=== PATIENT | female | born 1995 | race Two or more races ===

== ENCOUNTER 2022-12-21 11:35 | Emergency (ER) | payer MEDICAID, SELFPAY ==
[2022-12-21 11:40] VITALS: BP 100/70; PULSE 75; O2SAT 98
[2022-12-21 11:48] VITALS: BP 114/66; PULSE 87; RESP 18; TEMP 35.9; O2SAT 98; BMI 29.9
[2022-12-21 12:12] LABS: MANUAL DIFF FLAG NO
[2022-12-21 12:18] LABS: Basophils Percent Auto 0.4 % (0-2); Eosinophils Absolute Auto 0.1 X10*3/uL (0.0-0.4); Eosinophils Percent Auto 1.6 % (0-4); Hematocrit 38.8 % (37.0-47.0); Hemoglobin 13.6 g/dl (12.0-16.0); Imm Gran Abs Auto 0.01 X10*3/uL (0.00-0.03); Imm Gran Pct Auto 0.1 % (0.0-0.4); Lymphocytes Absolute Auto 2.1 X10*3/uL (1.2-4.9); Lymphocytes Percent Auto 31.6 % (20-40); Mean Corpuscular HGB Conc 35.1 g/dl (31.0-35.0); Mean Corpuscular Volume 88.4 fL (80.0-98.0); Mean Platelet Volume 9.1 fL (9.4-12.3); Monocytes Absolute Auto 0.6 X10*3/uL (0.1-1.2); Monocytes Percent Auto 8.2 % (2-11); Neutrophils Absolute Auto 3.9 x10*3/uL (2.0-8.3); Neutrophils Percent Auto 58.1 % (45-73); Platelet Count 395 X10*3/uL (160-400); Red Blood Count 4.39 X10*6/uL (4.20-5.50); Red Cell Distribution Width 12.9 % (11.0-16.0); White Blood Count 6.7 X10*3/uL (4.8-10.8)
--- NOTE | 2022-12-21 12:30 | ED.ABDPAIN ---
HPI - Abdominal Pain General Chief Complaint: Abdominal Pain Stated Complaint: Right flank pain, N/V, dizziness, weakness per EMS Time Seen by Provider: 12/21/22 11:45 Source: patient Mode of arrival: ambulatory History of Present Illness HPI narrative: 27-year-old female who states she has had intermittent epigastric discomfort for quite a while and reports that she has had extensive workup and [place] to include a right upper quadrant ultrasound which did not show any gallbladder disease. Patient states that she was having epigastric pain and denies any alcohol use. Patient is not febrile. Related Data Home Medications Medication Instructions Recorded Confirmed 5-hydroxytryptophan (5-HTP) 50 mg 25 mg PO BID 12/21/22 capsule acetaminophen 325 mg capsule 325 mg PO QID PRN 12/21/22 albuterol 90 mcg/actuation aerosol mcg inhalation 12/21/22 inhaler aripiprazole 5 mg tablet 5 mg PO DAILY 12/21/22 bupropion HCl 150 mg 24 hr tablet, 150 mg PO QAM 12/21/22 extended release diphenhydramine HCl 25 mg capsule 25 mg PO TID PRN 12/21/22 (Benadryl) escitalopram oxalate 20 mg tablet 20 mg PO DAILY 12/21/22 ferrous sulfate 325 mg (65 mg 325 mg PO DAILY 12/21/22 iron) tablet fluticasone furoate 200 1 inh inhalation DAILY 12/21/22 mcg-vilanterol 25 mcg/dose inhalation powder (Breo Ellipta) lamotrigine 100 mg tablet 100 mg PO DAILY 12/21/22 lisdexamfetamine 20 mg capsule 20 mg PO DAILY 12/21/22 (Vyvanse) lorazepam 0.5 mg tablet 0.5 mg PO DAILY PRN 12/21/22 nicotine 7 mg/24 hr daily 1 patch transdermal Q24H 12/21/22 transdermal patch polyethylene glycol 3350 17 17 g PO DAILY 12/21/22 gram/dose oral powder (Miralax) sennosides 8.6 mg-docusate sodium 1 tab-cap PO BEDTIME 12/21/22 50 mg tablet (Senna with Docusate Sodium) Previous Rx's Medication Instructions Recorded omeprazole 40 mg capsule,delayed 40 mg PO DAILY #30 caps 12/21/22 release Allergies Allergy/AdvReac Type Severity Reaction Status Date / Time No Known Allergies Allergy Verified 12/21/22 11:01 Review of Systems Review of Systems Pertinent positives and negatives as stated in HPI [facility] Past Medical History Source: nursing notes reviewed Social History Social History Advance Directives: No Physical Exam ED Vital Signs: Vital Signs - 24 hr 12/21/22 11:48 12/21/22 13:36 Temperature 96.6 F L 97.9 F Pulse Rate 87 75 Respiratory Rate 18 19 Blood Pressure 114/66 111/64 Pulse Oximetry 98 97 Oxygen Delivery Method Room Air Room Air BMI result Body Mass Index 29.9 VITAL SIGNS: Reviewed. GENERAL: Well developed, well nourished, in no acute distress. HEAD: Normocephalic/atraumatic EYES: PERRLA, EOMI LUNGS: Normal breath sounds. No adventitious sounds or accessory muscle use. SpO2<97> CARDIOVASCULAR: Regular rate and rhythm without noted murmurs ABDOMEN: Soft, epigastric discomfort without rebound, non-distended with bowel sounds. MUSCULOSKELETAL: No tenderness, deformities, or effusions noted on gross inspection. EXTREMITIES: No cyanosis, clubbing or edema. SKIN: Inspection of the skin reveals no rashes NEUROLOGIC: Alert and oriented x 4. Strength and sensation to light touch were grossly intact x 4. Medical Decision Making Medical Decision Making MDM Narrative: 27-year-old female with history and clinical presentation after review of all investigations my interpretation is this patient likely has gastritis as she is afebrile, there is no leukocytosis no evidence new anemia and no electrolyte abnormalities or UTI. All results discussed with her, she received a GI cocktail as well as some Carafate and is feeling better. Differential Diagnosis Please see the discussion above Lab Data Please see the discussion above 12/21/22 12:06 12/21/22 12:06 Labs: Lab Results 12/21/22 12/21/22 12/21/22 Range/Units 12:06 12:06 13:23 WBC 6.7 (4.8-10.8) X10*3/uL RBC 4.39 (4.20-5.50) X10*6/uL Hgb 13.6 (12.0-16.0) g/dl Hct 38.8 (37.0-47.0) % MCV 88.4 (80.0-98.0) fL MCH 31.0 (27.0-33.0) pg MCHC 35.1 H (31.0-35.0) g/dl RDW 12.9 (11.0-16.0) % Plt Count 395 (160-400) X10*3/uL MPV 9.1 L (9.4-12.3) fL Immature Gran % (Auto) 0.1 (0.0-0.4) % Neut % (Auto) 58.1 (45-73) % Lymph % (Auto) 31.6 (20-40) % [place] % (Auto) 8.2 (2-11) % Eos % (Auto) 1.6 (0-4) % Baso % (Auto) 0.4 (0-2) % Lymph # (Auto) 2.1 (1.2-4.9) X10*3/uL [place] # (Auto) 0.6 (0.1-1.2) X10*3/uL Eos # (Auto) 0.1 (0.0-0.4) X10*3/uL Baso # (Auto) 0.0 (0.0-0.2) X10*3/uL Abs Immat Gran (auto) 0.01 (0.00-0.03) X10*3/uL Absolute Neuts (auto) 3.9 (2.0-8.3) x10*3/uL Absolute Nucleated RBC 0.000 (0.0-0.012) X10*3/uL Nucleated RBC % (auto) 0.0 (0.0-0.2) /100WBC Sodium 141 (135-145) mmol/L Potassium 4.1 (3.3-5.1) mmol/L Chloride 107 (96-108) mmol/L Carbon Dioxide 29 (22-29) mmol/L Anion Gap 9 L (12-20) BUN 9 (9-16) mg/dL Creatinine 0.71 (0.5-1.4) mg/dL Estim Creat Clear Calc 96.6 Estimated GFR > 60 Random Glucose 100 (60-115) mg/dL Calcium 9.7 (8.4-10.2) mg/dL Total Bilirubin 0.7 (0.0-1.0) mg/dL AST 15 (5-31) U/L ALT 14 (0-31) U/L Alkaline Phosphatase 75 (39-117) U/L Total Protein 7.1 (6.5-8.0) g/dL Albumin 4.6 (3.5-5.0) g/dL Beta HCG, Quant < 2 mIU/mL Urine Color Yellow Urine Appearance Clear Urine pH 7.0 (5.0-9.0) Ur Specific [place] 1.015 (1.005-1.025) Urine Protein Negative (Neg-Trace) mg/dL Urine Glucose (UA) Negative (Negative) mg/dL Urine Ketones Negative (Negative) mg/dL Urine Blood Negative (Negative) Urine Nitrite Negative (Negative) Ur Leukocyte Esterase Negative (Negative) Medications Administered Discontinued Medications Generic Name Dose Route Start Last Admin Trade Name Freq PRN Reason Stop Dose Admin Al Hydroxide/Mg Hydroxide 30 ml 12/21/22 12:30 12/21/22 12:51 Magnesium Hydrox/Alum Hydrox 30 Ml Oral.Susp PO 12/21/22 12:31 30 ml ONCE ONE Administration Lidocaine HCl 10 ml 12/21/22 12:30 12/21/22 13:38 Lidocaine Hcl Viscous 2 % 15 Ml Solution MUCOUS MEM 12/21/22 12:31 10 ml ONCE ONE Administration Ondansetron HCl 4 mg 12/21/22 12:30 12/21/22 12:51 Ondansetron Odt 4 Mg Tab.Rapdis TRANSLINGU 12/21/22 12:31 4 mg ONCE ONE Administration Discharge Plan Discharge Clinical Impression: Gastritis Patient Disposition: Home, Self-Care Instructions: Gastritis (ED), Diet for Stomach Ulcers and Gastritis (ED) Additional Instructions: 1. You have been started on omeprazole, this is an antacid and should help with your symptoms. Also consider dietary changes. 2. Follow-up with your primary care provider as soon as you get 1 established. Return to the ER for any worsening of symptoms or new symptoms. Prescriptions: New omeprazole 40 mg capsule,delayed release(DR/EC) 40 mg PO DAILY Qty: 30 0RF No Action acetaminophen 325 mg capsule 325 mg PO QID PRN aripiprazole 5 mg tablet 5 mg PO DAILY diphenhydramine HCl [Benadryl] 25 mg capsule 25 mg PO TID PRN fluticasone furoate-vilanterol [Breo Ellipta] 200-25 mcg/dose blister with device 1 inh inhalation DAILY bupropion HCl 150 mg tablet extended release 24 hr 150 mg PO QAM escitalopram oxalate 20 mg tablet 20 mg PO DAILY ferrous sulfate 325 mg (65 mg iron) tablet 325 mg PO DAILY 5-hydroxytryptophan (5-HTP) 50 mg capsule 25 mg PO BID lamotrigine 100 mg tablet 100 mg PO DAILY lorazepam 0.5 mg tablet 0.5 mg PO DAILY PRN polyethylene glycol 3350 [Miralax] 17 gram/dose powder 17 g PO DAILY nicotine 7 mg/24 hr patch 24 hour 1 patch transdermal Q24H albuterol 90 mcg/actuation aerosol inhalation sennosides-docusate sodium [Senna with Docusate Sodium] 8.6-50 mg tablet 1 tab-cap PO BEDTIME Vyvanse 20 mg capsule 20 mg PO DAILY
[2022-12-21 12:39] LABS: Alanine Aminotransferase 14 U/L (0-31); Albumin Level 4.6 g/dL (3.5-5.0); Alkaline Phosphatase 75 U/L (39-117); Anion Gap 9 (12-20); Aspartate Amino Transferase 15 U/L (5-31); Bilirubin Total 0.7 mg/dL (0.0-1.0); Blood Urea Nitrogen 9 mg/dL (9-16); Calcium 9.7 mg/dL (8.4-10.2); Carbon Dioxide 29 mmol/L (22-29); Chloride 107 mmol/L (96-108); Creatinine Clr Calc Pharmacy 96.6; Estimated Glomerular Filt Rate > 60; Glucose Random 100 mg/dL (60-115); Potassium 4.1 mmol/L (3.3-5.1); Sodium 141 mmol/L (135-145); Total Protein 7.1 g/dL (6.5-8.0)
[2022-12-21 12:41] LABS: HCG Quantitative < 2 mIU/mL
[2022-12-21] MEDS: Ondansetron ODT 4 MG TAB.RAPDIS TRANSLINGU (12:51)
[2022-12-21] MEDS: Magnesium Hydrox/Alum Hydrox 30 ML ORAL.SUSP PO (12:51)
[2022-12-21 13:36] VITALS: BP 111/64; PULSE 75; RESP 19; TEMP 36.6; O2SAT 97
[2022-12-21] MEDS: Lidocaine HCl Viscous 2 % 15 ML SOLUTION 10 ML MUCOUS MEM (13:38)
[2022-12-21 13:41] LABS: Appearance Urine Clear; Color Urine Yellow; Glucose Urine UA Negative (Negative); Leukocyte Esterase Urine Negative (Negative); Nitrite Urine Negative (Negative); Specific Gravity - Urine 1.015 (1.005-1.025); Urine Blood Negative (Negative); Urine Ketones Negative (Negative); Urine Protein Negative (Neg-Trace)
[2022-12-21] MEDS: Sucralfate Oral Suspension 1 GM/10 ML ORAL.SUSP PO (14:02)
== END 2022-12-21 14:13 | disposition home or self-care (01) ==
PROVIDERS: Emergency Provider Student in an Organized Health Care Education/Training Program
DX: K29.70 Gastritis, unspecified, without bleeding (principal); Z79.899 Other long term (current) drug therapy
CPT/HCPCS: 36415; 80053; 81003; 84702; 85025; 99283; 99284

== ENCOUNTER 2023-01-12 07:21 | Emergency (ER) | payer OTHER, SELFPAY ==
--- NOTE | ~2023-01-12 | XR_ITS ---
EXAMINATION: XR CHEST CLINICAL INFORMATION: Chest pain COMPARISON: Chest radiograph from 02/04/2020 TECHNIQUE: 2 views of the chest were obtained. FINDINGS: No focal consolidation. No pneumothorax. Trachea is midline. Cardiac mediastinal silhouette is not enlarged. No large pleural effusion. Osseous structures are intact. Soft tissues are unremarkable. XR/XR chest 2V IMPRESSION: No acute cardiopulmonary process.
[2023-01-12 07:31] VITALS: BP 107/70; BP 118/70; PULSE 100; PULSE 97; RESP 18; TEMP 36.9; O2SAT 98; O2SAT 99; BMI 26.0
--- NOTE | 2023-01-12 07:36 | ECG_ITS ---
Test Reason : CHEST PRESSURE Blood Pressure : / mmHG Vent. Rate : 095 BPM Atrial Rate : 095 BPM P-R Int : 134 ms QRS Dur : 082 ms QT Int : 364 ms P-R-T Axes : 051 048 032 degrees QTc Int : 457 ms Normal sinus rhythm Low voltage QRS Nonspecific T wave abnormality Abnormal ECG No previous ECGs available Referred By: Generic ED Physician Electronically Signed By:Atilio Bryan
--- NOTE | 2023-01-12 07:53 | ED_ITS ---
HPI - Chest Pain General Chief Complaint: Chest Pain Stated Complaint: CP/VOMITING/DIZZY/BLURRED VISION FOR DAYS Time Seen by Provider: 01/12/23 07:24 Source: patient Mode of arrival: ambulatory Limitations: no limitations History of Present Illness HPI narrative: Patient presents with chest pain. She has a 27-year-old female with history of anxiety, asthma who presents with chest pain. The chest pain started a pproximately 1 hour prior to arrival. This is new in onset. The pain is sternal in nature. Does not radiate. The pain is described as pressure like. It is an 8/10. It is not associated with exertion. The symptoms started at rest. Symptoms were also preceded by nausea, vomiting and abdominal discomfort and a bowel movement. Patient denies any fevers, chills, cough or mucus production. She has no pulmonary embolus risk factors. She has a negative family history for cardiac disease or sudden cardiac . Patient does have history of anxiety. She did not take any anxiety medications this morning. Related Data Home Medications Medication Instructions Recorded Confirmed 5-hydroxytryptophan (5-HTP) 50 mg 25 mg PO BID 12/21/22 capsule acetaminophen 325 mg capsule 325 mg PO QID PRN 12/21/22 albuterol 90 mcg/actuation aerosol mcg inhalation 12/21/22 inhaler aripiprazole 5 mg tablet 5 mg PO DAILY 12/21/22 bupropion HCl 150 mg 24 hr tablet, 150 mg PO QAM 12/21/22 extended release diphenhydramine HCl 25 mg capsule 25 mg PO TID PRN 12/21/22 (Benadryl) escitalopram oxalate 20 mg tablet 20 mg PO DAILY 12/21/22 ferrous sulfate 325 mg (65 mg 325 mg PO DAILY 12/21/22 iron) tablet fluticasone furoate 200 1 inh inhalation DAILY 12/21/22 mcg-vilanterol 25 mcg/dose inhalation powder (Breo Ellipta) lamotrigine 100 mg tablet 100 mg PO DAILY 12/21/22 lisdexamfetamine 20 mg capsule 20 mg PO DAILY 12/21/22 (Vyvanse) lorazepam 0.5 mg tablet 0.5 mg PO DAILY PRN 12/21/22 nicotine 7 mg/24 hr daily 1 patch transdermal Q24H 12/21/22 transdermal patch polyethylene glycol 3350 17 17 g PO DAILY 12/21/22 gram/dose oral powder (Miralax) sennosides 8.6 mg-docusate sodium 1 tab-cap PO BEDTIME 12/21/22 50 mg tablet (Senna with Docusate Sodium) Previous Rx's Medication Instructions Recorded omeprazole 40 mg capsule,delayed 40 mg PO DAILY #30 caps 12/21/22 release Allergies Allergy/AdvReac Type Severity Reaction Status Date / Time No Known Allergies Allergy Verified 01/12/23 07:31 Review of Systems Review of Systems: CONSTITUTIONAL: Denies weight loss, fever and chills. HEENT: Denies changes in vision and hearing. RESPIRATORY: Denies SOB and cough. CV: Denies palpitations + CP. GI: + abdominal pain, nausea, vomiting no diarrhea. : Denies dysuria and urinary frequency. MSK: Denies myalgia and joint pain. SKIN: Denies rash and pruritus. NEUROLOGICAL: Denies headache and syncope. PSYCHIATRIC: Denies recent changes in mood. Denies anxiety and depression. All other ROS are negative unless in HPI COUNT INCLUDES THE [facility] Social History Social History Alcohol intake: never Advance Directives: No Advance Directives Information Provided: No Physical Exam Vital Signs: Vital Signs: Last Vital Signs Temp 98.4 F 01/12/23 07:31 Pulse 97 01/12/23 07:31 Resp 18 01/12/23 07:31 BP 107/70 01/12/23 07:31 Pulse Ox 98 01/12/23 07:31 O2 Del Method Room Air 01/12/23 07:31 BMI result Body Mass Index 26.0 GEN: Well developed, no acute distress, alert, oriented HEENT: Normocephalic, atraumatic, normal external ears, nose appears normal, no oropharyngeal edema or exudates Eyes: Normal to appearance Neck: Supple, no lymphadenopathy Respiratory: Talks in complete sentences, no respiratory distress, clear to auscultation bilaterally Cardiovascular: Regular rate and rhythm, no murmurs rubs or gallops Abdomen: Soft, nontender, nondistended, no guarding, no rebound Back: No CVA tenderness Extremities: No clubbing cyanosis or edema Neurologic: No focal neurologic deficits, cranial nerves 2-12 intact, strength is 5/5 bilaterally Skin: No rash Chest: Reproducible sternal tenderness to palpation Course Course Course Narrative: 27-year-old female presents with chest pain. The chest pain is reproduced examination. Her cardiopulmonary exam is unremarkable. There is no lower extremity edema. Patient is a very low risk cardiac patient. EKG is nonischemic. There is no evidence of old right heart strain and she has negative PERC criteria. At this point, I believe patient may very well have gastroenteritis with the nausea, vomiting and is needing of passing a bowel movement. The chest pain is reproducible on examination. Doubt pulmonary embolus, dissection or other potentially catastrophic cause of her symptoms. Will get a chest x-ray. Will provide patient is with analgesics. Will re- evaluate the patient. Reevaluation(s) Reevaluation #1: Patient's pain is significantly diminished after treatment. She would like to be discharged at this time. I doubt acute catastrophic event. Patient has been given discharge instructions and is aware of reasons to return. Time: 08:55 Medications Administered Discontinued Medications Generic Name Dose Route Start Last Admin Trade Name Freq PRN Reason Stop Dose Admin Acetaminophen 975 mg 01/12/23 07:47 01/12/23 08:07 Acetaminophen 325 Mg Tablet PO 01/12/23 07:48 975 mg ONCE ONE Administration Ketorolac Tromethamine 30 mg 01/12/23 07:47 01/12/23 08:07 Ketorolac Tromethamine 30 Mg/Ml Vial IM 01/12/23 07:48 30 mg ONCE ONE Administration Ondansetron HCl 4 mg 01/12/23 07:53 01/12/23 08:07 Ondansetron Odt 4 Mg Tab.Rapdis TRANSLINGU 01/12/23 07:54 4 mg ONCE ONE Administration Medical Decision Making Medical Decision Making MDM Narrative: 27-year-old female presents with atypical chest pain. Most likely secondary to musculoskeletal pain. The differential diagnosis includes GERD, reflux, esophageal spasm, anxiety, musculoskeletal pain, atypical pain, doubt PE, dissection or acute coronary syndrome. Patient is very low suspicion for acute coronary syndrome or acute pulmonary embolus given negative PERC criteria. She does not have symptoms consistent with pericarditis or Steven myocarditis. I doubt thoracic aortic dissection, pneumothorax or pneumonia given the lack of infectious symptoms. Presentation is most consistent with musculoskeletal pain/viral syndrome. The presentation is not consistent with other acute emergent causes of chest pain at this time. There is no indication for cardiac enzyme testing. I do plan to order chest x-ray to evaluate for acute cardiopulm onary causes. I will also review her EKG and provide analgesic control. Differential Diagnosis Differential Diagnoses: The differential diagnosis associated with the presentation includes (See above) Admission/Observation Consideration of admission/observation: Escalation of care including admission/observation considered Independent Interpretation I performed an independent interpretation of an: EKG (Normal sinus rhythm heart rate 95, nonspecific T-wave changes, no acute ST elevations depressions, normal intervals) and Plain X-Ray (Chest: No acute cardiopulmonary disease) Prescription Management I considered prescription management with: Pain Medication Discharge Plan Discharge Clinical Impression: Atypical chest pain Patient Disposition: Home, Self-Care Instructions: Chest Pain (DC), Chest Wall Pain (ED) Prescriptions: No Action omeprazole 40 mg capsule,delayed release(DR/EC) 40 mg PO DAILY Qty: 30 0RF acetaminophen 325 mg capsule 325 mg PO QID PRN aripiprazole 5 mg tablet 5 mg PO DAILY diphenhydramine HCl [Benadryl] 25 mg capsule 25 mg PO TID PRN fluticasone furoate-vilanterol [Breo Ellipta] 200-25 mcg/dose blister with device 1 inh inhalation DAILY bupropion HCl 150 mg tablet extended release 24 hr 150 mg PO QAM escitalopram oxalate 20 mg tablet 20 mg PO DAILY ferrous sulfate 325 mg (65 mg iron) tablet 325 mg PO DAILY 5-hydroxytryptophan (5-HTP) 50 mg capsule 25 mg PO BID lamotrigine 100 mg tablet 100 mg PO DAILY lorazepam 0.5 mg tablet 0.5 mg PO DAILY PRN polyethylene glycol 3350 [Miralax] 17 gram/dose powder 17 g PO DAILY nicotine 7 mg/24 hr patch 24 hour 1 patch transdermal Q24H albuterol 90 mcg/actuation aerosol inhalation sennosides-docusate sodium [Senna with Docusate Sodium] 8.6-50 mg tablet 1 tab-cap PO BEDTIME Vyvanse 20 mg capsule 20 mg PO DAILY Referrals: Physician,Unknown J [Primary Care Provider] -
[2023-01-12] MEDS: Ketorolac Tromethamine 30 MG/ML VIAL IM (08:07)
[2023-01-12] MEDS: Acetaminophen 325 MG TABLET 975 MG PO (08:07)
[2023-01-12] MEDS: Ondansetron ODT 4 MG TAB.RAPDIS TRANSLINGU (08:07)
== END 2023-01-12 09:04 | disposition home or self-care (01) ==
PROVIDERS: Emergency Provider Emergency Medicine
DX: R07.89 Other chest pain (principal); F17.200 Nicotine dependence, unspecified, uncomplicated
CPT/HCPCS: 71046; 93005; 96372; 99284; J1885

== ENCOUNTER 2023-01-17 16:56 | Emergency (ER) | payer OTHER, SELFPAY ==
--- NOTE | ~2023-01-17 | CT_ITS ---
EXAMINATION: CT ABDOMEN AND PELVIS WITH CONTRAST CLINICAL INFORMATION: Abdominal pain COMPARISON: None available. TECHNIQUE: Multidetector volumetric images were obtained from the superior aspect of the liver through the pubic symphysis following administration 85 mL of Omnipaque 350 intravenous contrast. Sagittal and coronal reformatted images were obtained on the technologist's workstation. Oral contrast: No This CT examination was performed using dose optimization techniques as appropriate, variously including the following: *Automated exposure control *Adjustment of mA and/or kV according to patient size (this includes techniques or standardized protocols for targeted exams where dose is matched to indication/reason for exam; i.e. extremities or head) *Use of iterative reconstruction technique DLP: 396 mGy-cm FINDINGS: LUNG BASES: The visualized lung bases are unremarkable. LIVER, GALLBLADDER, AND BILIARY TREE: The liver is enlarged measuring 20 cm in cephalocaudad dimension. No focal hepatic lesion or biliary ductal dilatation is present. The gallbladder is unremarkable with no evidence of radiopaque gallstones, gallbladder wall thickening, or obvious pericholecystic inflammatory changes. PANCREAS: Unremarkable. SPLEEN: Unremarkable. ADRENAL GLANDS: Unremarkable. KIDNEYS AND URETERS: The kidneys are normal in size, shape, and attenuation. There are some small bilateral Bosniak class I cysts measuring less than 1 cm in size each. No suspicious solid renal masses. No hydronephrosis, hydroureter, or calculi seen. No perinephric stranding. BLADDER: Unremarkable. GASTROINTESTINAL TRACT: The small and large bowel are unremarkable. The appendix is unremarkable. ABDOMINAL WALL: No significant hernia is appreciated. LYMPH NODES: Normal. VASCULAR: Unremarkable. PELVIC VISCERA: An anteverted uterus is present. Some fluid is present in the endometrial canal. No uterine fibroids are seen. A right ovarian cyst is present measuring 3.1 x 2.5 x 3.3 cm. No free intraperitoneal fluid is seen. OSSEOUS STRUCTURES: Unremarkable. CT/CT abdomen pelvis w IV con IMPRESSION: 1. A cause for the patient's abdominal pain has not been found. 2. Incidental note made of mild hepatomegaly, benign Bosniak class I renal cysts which need no further follow-up, right ovarian cyst and a small amount of fluid in the endometrial canal. Fleischner guidelines were followed.
[2023-01-17 18:01] VITALS: BP 123/84; PULSE 77; RESP 16; TEMP 36; O2SAT 100; BMI 27.4
--- NOTE | 2023-01-17 18:01 | ED_ITS ---
HPI - Female Genitourinary General Chief complaint: GI Bleed Stated complaint: heavy period bleeding, cramps Time Seen by Provider: 01/17/23 22:03 Source: patient and RN notes reviewed Mode of arrival: ambulatory Limitations: no limitations History of Present Illness HPI Narrative: 27-year-old female presents for evaluation of rectal bleeding. Patient reports that she has had mild rectal bleeding that is bright red for last 2 weeks. She states that it was initially only on the toilet paper when she wiped. Over the last 2 days she has noticed bloody bowel movements and ?sometimes it just comes out when I am not having bowel movements now. ? Patient reports that she has had rectal pain for several years. She has been examined for external hemorrhoids but has never seen GI or had a digital rectal exam She reports right lower abdominal pain She is not on any anticoagulation She is on every other day iron supplementation Related Data Home Medications Medication Instructions Recorded Confirmed 5-hydroxytryptophan (5-HTP) 50 mg 25 mg PO BID 12/21/22 capsule acetaminophen 325 mg capsule 325 mg PO QID PRN 12/21/22 albuterol 90 mcg/actuation aerosol mcg inhalation 12/21/22 inhaler aripiprazole 5 mg tablet 5 mg PO DAILY 12/21/22 bupropion HCl 150 mg 24 hr tablet, 150 mg PO QAM 12/21/22 extended release diphenhydramine HCl 25 mg capsule 25 mg PO TID PRN 12/21/22 (Benadryl) escitalopram oxalate 20 mg tablet 20 mg PO DAILY 12/21/22 ferrous sulfate 325 mg (65 mg 325 mg PO DAILY 12/21/22 iron) tablet fluticasone furoate 200 1 inh inhalation DAILY 12/21/22 mcg-vilanterol 25 mcg/dose inhalation powder (Breo Ellipta) lamotrigine 100 mg tablet 100 mg PO DAILY 12/21/22 lisdexamfetamine 20 mg capsule 20 mg PO DAILY 12/21/22 (Vyvanse) lorazepam 0.5 mg tablet 0.5 mg PO DAILY PRN 12/21/22 nicotine 7 mg/24 hr daily 1 patch transdermal Q24H 12/21/22 transdermal patch polyethylene glycol 3350 17 17 g PO DAILY 12/21/22 gram/dose oral powder (Miralax) sennosides 8.6 mg-docusate sodium 1 tab-cap PO BEDTIME 12/21/22 50 mg tablet (Senna with Docusate Sodium) Previous Rx's Medication Instructions Recorded omeprazole 40 mg capsule,delayed 40 mg PO DAILY #30 caps 12/21/22 release hydrocortisone acetate 25 mg 25 mg MT BID 5 days #12 ea 01/18/23 rectal suppository (Anusol-HC) polyethylene glycol 3350 17 17 g PO DAILY #238 grams 01/18/23 gram/dose oral powder (Miralax) Allergies Allergy/AdvReac Type Severity Reaction Status Date / Time No Known Allergies Allergy Verified 01/17/23 18:01 Review of Systems Constitutional: Constitutional: Reports as per HPI, Denies chills, Denies fatigue, Denies fever(s) and Denies headache(s) ENT: Denies headache(s) Cardiovascular: Cardiovascular: Denies chest pain and Denies dyspnea Respiratory: Respiratory: Denies cough and Denies dyspnea Gastrointestinal: Gastrointestinal: Reports abdominal pain, Reports hematochezia and Denies vomiting Genitourinary: Genitourinary: Denies dysuria Neurologic: Denies headache(s) and Denies focal weakness Endocrine: Endocrine: Denies fatigue PMFSH Social History Social History Alcohol intake: never Smoked in Last 30 Days: No Use of substances other than those prescribed or required for medical reasons: No Advance Directives: No Advance Directives Information Provided: No Physical Exam Vital Signs: Vital Signs: Last Vital Signs Temp 97.8 F 01/18/23 00:17 Pulse 85 01/18/23 00:17 Resp 16 01/18/23 00:17 BP 115/67 01/18/23 00:17 Pulse Ox 98 01/18/23 00:17 O2 Del Method Room Air 01/18/23 00:17 BMI result Body Mass Index 27.4 Const: General: healthy appearing, comfortable, no acute distress, alert and awake Nutritional Appearance: well nourished Orientation/consciousness: patient oriented x3 HEENT: Head: Yes normocephalic and Yes atraumatic Throat: Yes posterior oropharynx normal Eyes: Eyelids: Yes eyelids normal Conjunctivae: conjunctivae normal Scle ubaldo: sclerae normal Corneas: corneas normal Pupils: Equal, round and reactive pupils present EOM: EOMs intact bilaterally Neck: Neck: Yes full ROM Resp: Effort & Inspection: normal respiratory effort, able to speak in complete sentences and not labored GI: Inspection: No distended Palpation (GI): Soft to palpation, not firm, Tenderness to palpation present (GI) in the RLQ, no guarding and not rigid A uscultation: normoactive bowel sounds Rectal Exam - Female: visual inspection normal, normal sphincter tone, No External hemorrhoid(s) present, No Anal fissure(s) present and heme negative stool Skin: General skin exam: no rashes or lesions noted and elasticity normal Neuro: General: patient oriented x3 Cranial nerves: Yes Equal, round and reactive pupils present and Yes Bilaterally intact EOM present Cognition (Neuro): normal cognition Course Course Course Narrative: RME: 27yo F c/o lower abdominal cramping followed by brbpr x today w/mild rectal pain w/straining. denies current constipation, fever, urinary sx, vaginal bleeding labs, UA, occult stool ordered Full HPI, ROS and PE to be performed by primary ED provider. Reevaluation(s) Reevaluation #1: Patient's CT scan does not explain the etiology of her rectal bleeding. Will treat as internal hemorrhoids with Anusol suppository and MiraLax. She will be referred to GI for further evaluation and treatment Time: 00:30 Medications Administered Discontinued Medications Generic Name Dose Route Start Last Admin Trade Name Freq PRN Reason Stop Dose Admin Iohexol 85 ml 01/17/23 23:42 01/17/23 23:43 Iohexol 350 Mg/Ml 100 Ml Infus..Btl IV 01/17/23 23:43 85 ml ONCE ONE Administration Medical Decision Making Medical Decision Making [facility] Narrative: 27-year-old female presents for evaluation of rectal bleeding has worsened over the last 2 weeks. No external hemorrhoids examination, no internal hemorrhoids palpable. Given her abdominal pain with bloody bowel movements with a CT scan of the abdomen pelvis. There are no risk factors for C diff. she is nontoxic appearing. Hemoglobin hematocrit are within normal limits. If there is no infectious process on imaging, the patient will require GI follow-up for colonoscopy Differential Diagnosis Colitis Diverticulitis Internal hemorrhoid External hemorrhoid Diverticular bleed Lab Data [facility] Lab Attestation statement: I reviewed the patient's lab results. 01/17/23 18:13 01/17/23 18:13 Labs: Lab Results 01/17/23 01/17/23 01/17/23 Range/Units 18:13 18:13 18:13 WBC 9.8 (4.8-10.8) X10*3/uL RBC 4.35 (4.20-5.50) X10*6/uL Hgb 13.5 (12.0-16.0) g/dl Hct 38.8 (37.0-47.0) % MCV 89.2 (80.0-98.0) fL MCH 31.0 (27.0-33.0) pg MCHC 34.8 (31.0-35.0) g/dl RDW 13.1 (11.0-16.0) % Plt Count 412 H (160-400) X10*3/uL MPV 9.2 L (9.4-12.3) fL Immature Gran % (Auto) 0.2 (0.0-0.4) % Neut % (Auto) 57.5 (45-73) % Lymph % (Auto) 32.6 (20-40) % [place] % (Auto) 7.9 (2-11) % Eos % (Auto) 1.4 (0-4) % Baso % (Auto) 0.4 (0-2) % Lymph # (Auto) 3.2 (1.2-4.9) X10*3/uL Donley # (Auto) 0.8 (0.1-1.2) X10*3/uL Eos # (Auto) 0.1 (0.0-0.4) X10*3/uL Baso # (Auto) 0.0 (0.0-0.2) X10*3/uL Abs Immat Gran (auto) 0.02 (0.00-0.03) X10*3/uL Absolute Neuts (auto) 5.7 (2.0-8.3) x10*3/uL Absolute Nucleated RBC 0.000 (0.0-0.012) X10*3/uL Nucleated RBC % (auto) 0.0 (0.0-0.2) /100WBC PT 10.6 (10.0-13.1) SEC INR 0.9 (0.9-1.1) Sodium 139 (135-145) mmol/L Potassium 4.1 (3.3-5.1) mmol/L Chloride 104 (96-108) mmol/L Carbon Dioxide 25 (22-29) mmol/L Anion Gap 14 (12-20) BUN 8 L (9-16) mg/dL Creatinine 0.73 (0.5-1.4) mg/dL Estim Creat Clear Calc 89.8 Estimated GFR > 60 Random Glucose 88 (60-115) mg/dL Calcium 9.5 (8.4-10.2) mg/dL Magnesium 2.0 (1.6-2.6) mg/dL Total Bilirubin 0.4 (0.0-1.0) mg/dL Direct Bilirubin 0.1 (0.0-0.5) mg/dL AST 20 (5-31) U/L ALT 16 (0-31) U/L Alkaline Phosphatase 80 (39-117) U/L Total Protein 7.4 (6.5-8.0) g/dL Albumin 4.6 (3.5-5.0) g/dL Lipase 35 (8-78) U/L Urine Color Urine Appearance Urine pH (5.0-9.0) Ur Specific [place] (1.005-1.025) Urine Protein (Neg-Trace) mg/dL Urine Glucose (UA) (Negative) mg/dL Urine Ketones (Negative) mg/dL Urine Blood (Negative) Urine Nitrite (Negative) Ur Leukocyte Esterase (Negative) Urine Test (NEGATIVE) Stool Occult Blood (NEGATIVE) 01/17/23 01/17/23 01/17/23 Range/Units 22:19 23:14 23:14 WBC (4.8-10.8) X10*3/uL RBC (4.20-5.50) X10*6/uL Hgb (12.0-16.0) g/dl Hct (37.0-47.0) % MCV (80.0-98.0) fL MCH (27.0-33.0) pg MCHC (31.0-35.0) g/dl RDW (11.0-16.0) % Plt Count (160-400) X10*3/uL MPV (9.4-12.3) fL Immature Gran % (Auto) (0.0-0.4) % Neut % (Auto) (45-73) % Lymph % (Auto) (20-40) % Donley % (Auto) (2-11) % Eos % (Auto) (0-4) % Baso % (Auto) (0-2) % Lymph # (Auto) (1.2-4.9) X10*3/uL [place] # (Auto) (0.1-1.2) X10*3/uL Eos # (Auto) (0.0-0.4) X10*3/uL Baso # (Auto) (0.0-0.2) X10*3/uL Abs Immat Gran (auto) (0.00-0.03) X10*3/uL Absolute Neuts (auto) (2.0-8.3) x10*3/uL Absolute Nucleated RBC (0.0-0.012) X10*3/uL Nucleated RBC % (auto) (0.0-0.2) /100WBC PT (10.0-13.1) SEC INR (0.9-1.1) Sodium (135-145) mmol/L Potassium (3.3-5.1) mmol/L Chloride (96-108) mmol/L Carbon Dioxide (22-29) mmol/L Anion Gap (12-20) BUN (9-16) mg/dL Creatinine (0.5-1.4) mg/dL Estim Creat Clear Calc Estimated GFR Random Glucose (60-115) mg/dL Calcium (8.4-10.2) mg/dL Magnesium (1.6-2.6) mg/dL Total Bilirubin (0.0-1.0) mg/dL Direct Bilirubin (0.0-0.5) mg/dL AST (5-31) U/L ALT (0-31) U/L Alkaline Phosphatase (39-117) U/L Total Protein (6.5-8.0) g/dL Albumin (3.5-5.0) g/dL Lipase (8-78) U/L Urine Color Yellow Urine Appearance Clear Urine pH 6.5 (5.0-9.0) Ur Specific [place] 1.010 (1.005-1.025) Urine Protein Negative (Neg-Trace) mg/dL Urine Glucose (UA) Negative (Negative) mg/dL Urine Ketones Negative (Negative) mg/dL Urine Blood Negative (Negative) Urine Nitrite Negative (Negative) Ur Leukocyte Esterase Negative (Negative) Urine Test NEGATIVE (NEGATIVE) Stool Occult Blood NEGATIVE (NEGATIVE) Independent Interpretation I performed an independent interpretation of an: CT Scan (No acute finding to explain the patient's pain.) Discharge Plan Discharge Clinical Impression: Abdominal pain, Bright red rectal bleeding Patient Disposition: Home, Self-Care Instructions: Rectal Bleeding (ED) Additional Instructions: Your blood counts are within normal limits today You do not have any obvious external hemorrhoids Her CT scan did not find any explanation for your pain Use the Anusol suppository as directed for 5 days Use MiraLax daily for the next 2 weeks to prevent straining as this will likely worsen the rectal bleeding Call Dr. Scott's office tomorrow morning to schedule follow-up as you likely need a colonoscopy to rule out concerning causes of your rectal bleeding Prescriptions: New hydrocortisone acetate [Anusol-HC] 25 mg suppository 25 mg MT BID 5 Days Qty: 12 0RF polyethylene glycol 3350 [Miralax] 17 gram/dose powder 17 g PO DAILY Qty: 238 0RF No Action omeprazole 40 mg capsule,delayed release(DR/EC) 40 mg PO DAILY Qty: 30 0RF acetaminophen 325 mg capsule 325 mg PO QID PRN aripiprazole 5 mg tablet 5 mg PO DAILY diphenhydramine HCl [Benadryl] 25 mg capsule 25 mg PO TID PRN fluticasone furoate-vilanterol [Breo Ellipta] 200-25 mcg/dose blister with device 1 inh inhalation DAILY bupropion HCl 150 mg tablet extended release 24 hr 150 mg PO QAM escitalopram oxalate 20 mg tablet 20 mg PO DAILY ferrous sulfate 325 mg (65 mg iron) tablet 325 mg PO DAILY 5-hydroxytryptophan (5-HTP) 50 mg capsule 25 mg PO BID lamotrigine 100 mg tablet 100 mg PO DAILY lorazepam 0.5 mg tablet 0.5 mg PO DAILY PRN polyethylene glycol 3350 [Miralax] 17 gram/dose powder 17 g PO DAILY nicotine 7 mg/24 hr patch 24 hour 1 patch transdermal Q24H albuterol 90 mcg/actuation aerosol inhalation sennosides-docusate sodium [Senna with Docusate Sodium] 8.6-50 mg tablet 1 tab-cap PO BEDTIME Vyvanse 20 mg capsule 20 mg PO DAILY
[2023-01-17 18:17] LABS: MANUAL DIFF FLAG NO
[2023-01-17 18:21] LABS: Basophils Percent Auto 0.4 % (0-2); Eosinophils Absolute Auto 0.1 X10*3/uL (0.0-0.4); Eosinophils Percent Auto 1.4 % (0-4); Hematocrit 38.8 % (37.0-47.0); Hemoglobin 13.5 g/dl (12.0-16.0); Imm Gran Abs Auto 0.02 X10*3/uL (0.00-0.03); Imm Gran Pct Auto 0.2 % (0.0-0.4); Lymphocytes Absolute Auto 3.2 X10*3/uL (1.2-4.9); Lymphocytes Percent Auto 32.6 % (20-40); Mean Corpuscular HGB Conc 34.8 g/dl (31.0-35.0); Mean Corpuscular Volume 89.2 fL (80.0-98.0); Mean Platelet Volume 9.2 fL (9.4-12.3); Monocytes Absolute Auto 0.8 X10*3/uL (0.1-1.2); Monocytes Percent Auto 7.9 % (2-11); Neutrophils Absolute Auto 5.7 x10*3/uL (2.0-8.3); Neutrophils Percent Auto 57.5 % (45-73); Platelet Count 412 X10*3/uL (160-400); Red Blood Count 4.35 X10*6/uL (4.20-5.50); Red Cell Distribution Width 13.1 % (11.0-16.0); White Blood Count 9.8 X10*3/uL (4.8-10.8)
[2023-01-17 18:28] LABS: INTERNATIONAL NORM RATIO 0.9 (0.9-1.1); Prothrombin Time 10.6 SEC (10.0-13.1)
[2023-01-17 18:33] LABS: Alanine Aminotransferase 16 U/L (0-31); Albumin Level 4.6 g/dL (3.5-5.0); Alkaline Phosphatase 80 U/L (39-117); Anion Gap 14 (12-20); Aspartate Amino Transferase 20 U/L (5-31); Bilirubin Direct 0.1 mg/dL (0.0-0.5); Bilirubin Total 0.4 mg/dL (0.0-1.0); Blood Urea Nitrogen 8 mg/dL (9-16); Calcium 9.5 mg/dL (8.4-10.2); Carbon Dioxide 25 mmol/L (22-29); Chloride 104 mmol/L (96-108); Creatinine Clr Calc Pharmacy 89.8; Estimated Glomerular Filt Rate > 60; Glucose Random 88 mg/dL (60-115); Lipase 35 U/L (8-78); Potassium 4.1 mmol/L (3.3-5.1); Sodium 139 mmol/L (135-145); Total Protein 7.4 g/dL (6.5-8.0)
[2023-01-17 22:24] LABS: OBS Int Ctl Valid YES; OBS1 NEGATIVE (NEGATIVE)
[2023-01-17 23:20] LABS: Appearance Urine Clear; Color Urine Yellow; Glucose Urine UA Negative (Negative); Leukocyte Esterase Urine Negative (Negative); Nitrite Urine Negative (Negative); PH 6.5 (5.0-9.0); Urine Blood Negative (Negative); Urine Ketones Negative (Negative); Urine Protein Negative (Neg-Trace)
[2023-01-17 23:22] LABS: UPreg QC Valid YES; Urine Pregnancy NEGATIVE (NEGATIVE)
[2023-01-17] MEDS: iohexoL 350 MG/ML 100 ML INFUS..BTL 85 ML IV (23:43)
[2023-01-18 00:17] VITALS: BP 115/67; PULSE 85; RESP 16; TEMP 36.6; O2SAT 98
== END 2023-01-18 00:48 | disposition home or self-care (01) ==
PROVIDERS: Physician Assistant; Emergency Provider Emergency Medicine
DX: K62.5 Hemorrhage of anus and rectum (principal); R10.2 Pelvic and perineal pain; Z79.899 Other long term (current) drug therapy
CPT/HCPCS: 36415; 74177; 80048; 80076; 81003; 81025; 82272; 83690; 83735; 85025; 85610; 99284; Q9967

== ENCOUNTER 2023-03-08 13:01 | Emergency (ER) | payer OTHER, SELFPAY ==
--- NOTE | ~2023-03-08 | XR_ITS ---
EXAMINATION: Right ankle and right foot. CLINICAL HISTORY: pain. COMPARISON: None. TECHNIQUE: Right foot 3 views and right ankle 2 views. FINDINGS: RIGHT ANKLE: The ankle mortise and subtalar joints are maintained normal. There is no visible fracture, dislocation or subluxation. The soft tissues are normal. RIGHT FOOT: There is no visible acute fracture, dislocation or bony abnormality. The soft tissues are normal. XR/XR foot RT min 3V IMPRESSION: Unremarkable right ankle and right foot exam
--- NOTE | ~2023-03-08 | XR_ITS ---
EXAMINATION: Right ankle and right foot. CLINICAL HISTORY: pain. COMPARISON: None. TECHNIQUE: Right foot 3 views and right ankle 2 views. FINDINGS: RIGHT ANKLE: The ankle mortise and subtalar joints are maintained normal. There is no visible fracture, dislocation or subluxation. The soft tissues are normal. RIGHT FOOT: There is no visible acute fracture, dislocation or bony abnormality. The soft tissues are normal. XR/XR ankle RT min 3V IMPRESSION: Unremarkable right ankle and right foot exam
[2023-03-08 14:05] VITALS: BP 119/77; PULSE 85; RESP 16; TEMP 35.8; O2SAT 98; BMI 27.7
--- NOTE | 2023-03-08 14:05 | ED.GENADULT ---
HPI - General Adult General Chief complaint: Extremity Injury, Lower Stated complaint: R ankle inj Time Seen by Provider: 03/08/23 15:34 Source: patient Mode of arrival: ambulatory Limitations: no limitations History of Present Illness HPI narrative: 27 y/o F with PMHx of borderline personality disorder, depression, anxiety, and asthma presents with R ankle pain. Her pain started 1 day ago when she tripped down 3 stairs and fell on her ankle while it was flexed outwards. She heard and felt a pop to the medial aspect of her ankle and was unable to walk immediately after. She was able to walk today but reports 8/10 pain. She reports some tingling to her foot but no numbness. She denies any fevers, chills, nausea, vomiting, chest pain or shortness of breath. Onset (ago): day(s) (1) Location: right and lower extremity Radiation: non-radiation Severity: mild Severity scale (1-10): 4 Quality: aching and dull Pain Consistency: constant Relieving factors: none Exacerbating factors: movement Associated symptoms: denies other symptoms Treatments prior to arrival: none Related Data Home Medications Medication Instructions Recorded Confirmed 5-hydroxytryptophan (5-HTP) 50 mg 25 mg PO BID 12/21/22 01/24/23 capsule albuterol 90 mcg/actuation aerosol mcg inhalation 12/21/22 01/24/23 inhaler aripiprazole 5 mg tablet 5 mg PO DAILY 12/21/22 01/24/23 bupropion HCl 150 mg 24 hr tablet, 150 mg PO QAM 12/21/22 01/24/23 extended release diphenhydramine HCl 25 mg capsule 25 mg PO TID PRN 12/21/22 01/24/23 (Benadryl) escitalopram oxalate 20 mg tablet 20 mg PO DAILY 12/21/22 01/24/23 ferrous sulfate 325 mg (65 mg 325 mg PO DAILY 12/21/22 01/24/23 iron) tablet fluticasone furoate 200 1 inh inhalation DAILY 12/21/22 01/24/23 mcg-vilanterol 25 mcg/dose inhalation powder (Breo Ellipta) lamotrigine 100 mg tablet 100 mg PO DAILY 12/21/22 01/24/23 lisdexamfetamine 20 mg capsule 20 mg PO DAILY 12/21/22 01/24/23 (Vyvanse) lorazepam 0.5 mg tablet 0.5 mg PO DAILY PRN 12/21/22 01/24/23 sennosides 8.6 mg-docusate sodium 1 tab-cap PO BEDTIME 12/21/22 01/24/23 50 mg tablet (Senna with Docusate Sodium) Previous Rx's Medication Instructions Recorded omeprazole 40 mg capsule,delayed 40 mg PO DAILY #30 caps 12/21/22 release hydrocortisone acetate 25 mg 25 mg RI BID 5 days #12 ea 01/18/23 rectal suppository (Anusol-HC) polyethylene glycol 3350 17 17 g PO DAILY #238 grams 01/18/23 gram/dose oral powder (Miralax) ciprofloxacin HCl 250 mg tablet 250 mg PO BID #14 tabs 01/24/23 prochlorperazine maleate 10 mg 10 mg PO BID PRN nausea and 01/24/23 tablet (Compazine) vomiting #14 tabs Allergies Allergy/AdvReac Type Severity Reaction Status Date / Time No Known Allergies Allergy Verified 01/24/23 08:51 Review of Systems Constitutional: Constitutional: Reports no additional constitutional complaints, Denies chills, Denies fever(s) and Denies night sweats Eyes: Eyes: Reports no additional eye complaints, Denies blurry vision, Denies change in vision, Denies diplopia, Denies eye discharge, Denies loss of vision and Denies eye pain ENT: Denies dizziness Cardiovascular: Cardiovascular: Reports no additional cardiovascular complaints, Denies chest pain, Denies lightheadedness, Denies Loss of Consciousness and Denies dyspnea Respiratory: Respiratory: Reports no additional respiratory complaints and Denies dyspnea Gastrointestinal: Gastrointestinal: Reports no additional gastrointestinal complaints, Denies abdominal pain, Denies melena, Denies hematochezia, Denies change in bowel habits and Denies change in stool character Genitourinary: Genitourinary: Denies hematuria, Denies urinary frequency, Denies dysuria, Denies urinary incontinence, Denies urinary hesitancy and Denies urinary urgency Musculoskeletal: Musculoskeletal: Reports no additional musculoskeletal complaints, Denies numbness and Denies tingling Comments: right ankle pain Neurologic: Denies dizziness, Denies loss of vision, Denies numbness and Denies tingling Psychiatric: Psychiatric: Reports no additional psychiatric complaints Endocrine: Endocrine: Reports no additional endocrine complaints Hematologic/Lymphatic: Hematologic/Lymphatic: Reports no additional hematologic/lymphatic complaints Allergic/Immunologic: Allergic/Immunologic: Reports no additional allergic/immunologic complaints PMFSH Past Medical History Attestation statement: The following information was validated with the patient. Source: old records reviewed and nursing notes reviewed Social History Social History Alcohol intake: never Patient Tobacco Use Status: Current someday Tobacco user Advance Directives: No Advance Directives Information Provided: Yes Physical Exam ED Vital Signs: Vital Signs - 24 hr 03/08/23 14:05 Temperature 96.5 F L Pulse Rate 85 Respiratory Rate 16 Blood Pressure 119/77 Pulse Oximetry 98 Oxygen Delivery Method Room Air BMI result Body Mass Index 27.7 Const General: cooperative, no acute distress, alert and awake Nutritional Appearance: well nourished Orientation/consciousness: patient oriented x3 Limitations: no limitations HENMT Head: Yes normal to inspection and Yes atraumatic Ears: hearing grossly normal bilaterally and external ears normal General nose exam: Normal external nose present, no nasal discharge noted and no epistaxis Face and sinus: Yes normal facial exam, No abrasion and No laceration Mouth: Normal oral and palatal mucosa present, no drooling and no muffled voice Eyes General: appearance normal, both eyes and all related structures Periorbital: periorbital findings normal Eyelids: Yes eyelids normal Conjunctivae: conjunctivae normal Pupils: Equal, round and reactive pupils present EOM: EOMs intact bilaterally Neck Neck: Yes normal visual inspection, Yes full ROM and Yes no lymphadenopathy Chest Chest palpation & inspection: normal inspection of the chest Resp Effort & Inspection: normal respiratory effort and able to speak in complete sentences GI Inspection: Yes normal to inspection Neuro General: patient oriented x3 and moves all extremities Cranial nerves: Yes Equal, round and reactive pupils present Cognition (Neuro): normal cognition Motor exam (neuro): 5/5 motor strength present throughout Sensory Exam: Normal double simultaneous stimulation for sensation Coordination: [id number] test normal Extrem General: Yes normal to inspection, Yes full ROM and Yes capillary refill normal Psych Appearance: grossly normal Mental Status: mental status grossly normal Affect: normal affect Attitude: cooperative Thought process: Normal thought process present Thought content: Normal thought content present Insight: Good insight present (Psych) Course Course Course Narrative: This is an RME: Additional HPI, ROS, PE not included below will be deferred to primary provider. This is a [id number]-[id number]-female, with a history of anxiety and asthma, presenting to the ER with complaints or right ankle/foot pain since yesterday. She tripped over 3 cement stairs yesterday and felt like it popped out of place and she put it back into place . Has had continued pain. Denies hitting head or LOC. Ambulatory with antalgic gait. TTP over the talus.VSS Plan: xray right foot and ankle. Procedures Orthopedic Splinting/Casting Injury #1: Side: right Lower Extremity Injury Location: ankle and foot Lower Extremity Immobilizer: boot orthosis Medical Decision Making Medical Decision Making MDM Narrative: Patient is a 27 year old assigned female at with a history of ADHD presenting to the emergency department today with right foot and ankle pain. Patient's physical exam was unremarkable. Patient's right foot and right ankle x-ray showed no acute process. I explained my physical exam findings as well as all test results to the patient. I answered all questions asked by the patient. Patient's right foot and ankle were placed into a walking boot, without incident. Patient's PMS was in tact prior to and after boot placement. I stressed the importance of the patient taking her medication as prescribed. I stressed the importance of the patient following up with her primary care provider and an orthopedic provider. I stressed the importance of the patient returning to the emergency department immediately if her symptoms were to worsen or if she were to develop any dizziness, shortness of breath, difficulty breathing, chest pain, blurry vision, loss of vision, nausea, vomiting, abdominal pain, fever, chills, back pain, or any other complaints. Patient verbalized agreement and understanding with this treatment plan and discharge. Differential Diagnosis Differential Diagnoses: The differential diagnosis associated with the presentation includes Foot fracture Ankle fracture Ankle sprain Foot sprain Foot strain Ankle strain Independent Interpretation I performed an independent interpretation of an: Plain X-Ray Interpretation: My interpretation is in agreement with the radiologist's impression of these imaging studies. EXAMINATION: Right ankle and right foot. CLINICAL HISTORY: pain. COMPARISON: None. TECHNIQUE: Right foot 3 views and right ankle 2 views. FINDINGS: RIGHT ANKLE: The ankle mortise and subtalar joints are maintained normal. There is no visible fracture, dislocation or subluxation. The soft tissues are normal. RIGHT FOOT: There is no visible acute fracture, dislocation or bony abnormality. The soft tissues are normal. XR/XR foot RT min 3V IMPRESSION: Unremarkable right ankle and right foot exam Dictated By: Lake Gonzalez MD Signed By: Electronically signed by Lake Gonzalez MD 03/08/23 1522 Radiology Impression Discussion of test interpretation with radiology: I have reviewed the radiologist's reading. Discharge Plan Discharge Clinical Impression: Ankle sprain and strain, Foot sprain Patient Disposition: Home, Self-Care Instructions: Ankle Sprain (DC), Foot Sprain (ED), Walking Boot (ED) Additional Instructions: Follow up with your primary care provider and an orthopedic provider. Return to the emergency department immediately if your symptoms worsen or if you develop any dizziness, shortness of breath, difficulty breathing, chest pain, blurry vision, loss of vision, nausea, vomiting, abdominal pain, fever, chills, back pain, or any other complaints. Prescriptions: No Action omeprazole 40 mg capsule,delayed release(DR/EC) 40 mg PO DAILY Qty: 30 0RF hydrocortisone acetate [Anusol-HC] 25 mg suppository 25 mg RI BID 5 Days Qty: 12 0RF polyethylene glycol 3350 [Miralax] 17 gram/dose powder 17 g PO DAILY Qty: 238 0RF ciprofloxacin HCl 250 mg tablet 250 mg PO BID Qty: 14 0RF prochlorperazine maleate [Compazine] 10 mg tablet 10 mg PO BID PRN (Reason: nausea and vomiting) Qty: 14 0RF aripiprazole 5 mg tablet 5 mg PO DAILY diphenhydramine HCl [Benadryl] 25 mg capsule 25 mg PO TID PRN fluticasone furoate-vilanterol [Breo Ellipta] 200-25 mcg/dose blister with device 1 inh inhalation DAILY bupropion HCl 150 mg tablet extended release 24 hr 150 mg PO QAM escitalopram oxalate 20 mg tablet 20 mg PO DAILY ferrous sulfate 325 mg (65 mg iron) tablet 325 mg PO DAILY 5-hydroxytryptophan (5-HTP) 50 mg capsule 25 mg PO BID lamotrigine 100 mg tablet 100 mg PO DAILY lorazepam 0.5 mg tablet 0.5 mg PO DAILY PRN albuterol 90 mcg/actuation aerosol inhalation sennosides-docusate sodium [Senna with Docusate Sodium] 8.6-50 mg tablet 1 tab-cap PO BEDTIME Vyvanse 20 mg capsule 20 mg PO DAILY Referrals: [facility] Family Medicine [Provider Group] (Call to establish and follow up with a primary care provider. If you already have a primary care provider, please follow up with them.) [facility] Primary Care, Shyanne [Provider Group] (Call to establish and follow up with a primary care provider. If you already have a primary care provider, please follow up with them.) [facility] Primary Care,Dion [Provider Group] (Call to establish and follow up with a primary care provider. If you already have a primary care provider, please follow up with them.) [facility] [Provider Group] (Call to establish and follow up with an orthopedic provider. ) Stand Alone Forms: Work/School Release Interventions: ED Discharge Assessment Last Done: 03/08/23 16:19 Discharge Date/Time: 03/08/23 16:19 Print Language: Romanian
== END 2023-03-08 16:19 | disposition home or self-care (01) ==
PROVIDERS: Emergency Provider Emergency Medicine
DX: S93.401A Sprain of unspecified ligament of right ankle, initial encounter (principal); S93.601A Unspecified sprain of right foot, initial encounter; W10.9XXA Fall (on) (from) unspecified stairs and steps, initial encounter; Y93.9 Activity, unspecified; Y92.9 Unspecified place or not applicable; Y99.9 Unspecified external cause status
CPT/HCPCS: 29515; 73610; 73630; 99283

== ENCOUNTER 2023-03-18 11:48 | Emergency (ER) | payer OTHER, SELFPAY ==
[2023-03-18 12:00] VITALS: BP 110/80; PULSE 89; O2SAT 98
[2023-03-18 12:03] VITALS: BP 127/79; PULSE 90; RESP 16; TEMP 36.6; O2SAT 97; BMI 28.0
--- NOTE | 2023-03-18 12:08 | ED.GENADULT ---
HPI - General Adult General Chief complaint: Extremity Injury, Lower Stated complaint: PREVIOUS FALL 1 WK AGO, 10/10 PAIN PER EMS Time Seen by Provider: 03/18/23 12:03 Source: patient and RN notes reviewed Mode of arrival: EMS Limitations: no limitations History of Present Illness HPI narrative: 27-year-old female presents for evaluation of right ankle pain. Patient reports that she fell down a few stairs 10 days ago. She came had x-rays of the right foot and ankle that were negative for fracture She reports that she has an MRI scheduled for this coming Patient reports standing for 5 hours today causing increase in her pain No new injury Related Data Home Medications Medication Instructions Recorded Confirmed 5-hydroxytryptophan (5-HTP) 50 mg 25 mg PO BID 12/21/22 01/24/23 capsule albuterol 90 mcg/actuation aerosol mcg inhalation 12/21/22 01/24/23 inhaler aripiprazole 5 mg tablet 5 mg PO DAILY 12/21/22 01/24/23 bupropion HCl 150 mg 24 hr tablet, 150 mg PO QAM 12/21/22 01/24/23 extended release diphenhydramine HCl 25 mg capsule 25 mg PO TID PRN 12/21/22 01/24/23 (Benadryl) escitalopram oxalate 20 mg tablet 20 mg PO DAILY 12/21/22 01/24/23 ferrous sulfate 325 mg (65 mg 325 mg PO DAILY 12/21/22 01/24/23 iron) tablet fluticasone furoate 200 1 inh inhalation DAILY 12/21/22 01/24/23 mcg-vilanterol 25 mcg/dose inhalation powder (Breo Ellipta) lamotrigine 100 mg tablet 100 mg PO DAILY 12/21/22 01/24/23 lisdexamfetamine 20 mg capsule 20 mg PO DAILY 12/21/22 01/24/23 (Vyvanse) lorazepam 0.5 mg tablet 0.5 mg PO DAILY PRN 12/21/22 01/24/23 sennosides 8.6 mg-docusate sodium 1 tab-cap PO BEDTIME 12/21/22 01/24/23 50 mg tablet (Senna with Docusate Sodium) Previous Rx's Medication Instructions Recorded omeprazole 40 mg capsule,delayed 40 mg PO DAILY #30 caps 05/17/23 release hydrocortisone acetate 25 mg 25 mg NE BID 5 days #12 ea 01/18/23 rectal suppository (Anusol-HC) polyethylene glycol 3350 17 17 g PO DAILY #238 grams 01/18/23 gram/dose oral powder (Miralax) ciprofloxacin HCl 250 mg tablet 250 mg PO BID #14 tabs 01/24/23 prochlorperazine maleate 10 mg 10 mg PO BID PRN nausea and 01/24/23 tablet (Compazine) vomiting #14 tabs Allergies Allergy/AdvReac Type Severity Reaction Status Date / Time No Known Allergies Allergy Verified 03/18/23 12:00 Review of Systems Musculoskeletal: Musculoskeletal: Reports arthralgias, Reports joint swelling and Reports limited range of motion PMFSH Social History Social History Alcohol intake: never Patient Tobacco Use Status: Current someday Tobacco user Physical Exam ED Vital Signs: Vital Signs - 24 hr 03/18/23 12:03 Temperature 97.8 F Pulse Rate 90 Respiratory Rate 16 Blood Pressure 127/79 Pulse Oximetry 97 Oxygen Delivery Method Room Air BMI result Body Mass Index 28.0 Const General: healthy appearing, comfortable, no acute distress, alert and awake Nutritional Appearance: well nourished Orientation/consciousness: patient oriented x3 HENMT Head: Yes normocephalic and Yes atraumatic Eyes Eyelids: Yes eyelids normal Conjunctivae: conjunctivae normal Sclerae: sclerae normal Corneas: corneas normal Pupils: Equal, round and reactive pupils present EOM: EOMs intact bilaterally Neck Neck: Yes full ROM Resp Effort & Inspection: normal respiratory effort, able to speak in complete sentences and not labored Skin General skin exam: no rashes or lesions noted and elasticity normal Neuro General: patient oriented x3 Cranial nerves: Yes Equal, round and reactive pupils present and Yes Bilaterally intact EOM present Cognition (Neuro): normal cognition Extrem Other: No significant edema to the right ankle although she is tender palpation of the right lateral and medial malleolus. Limited range of motion with flexion and extension. Distal sensation capillary refill intact Medical Decision Making Medical Decision Making MDM Narrative: Patient has no new injury. She had negative x-rays 10 days ago. Denies see any indication for further imaging. Patient is stable for discharge at this time. Differential Diagnosis Differential Diagnoses: The differential diagnosis associated with the presentation includes Ankle sprain Fracture Dislocated Ligamentous injury Discharge Plan Discharge Clinical Impression: Ankle sprain and strain Patient Disposition: Home, Self-Care Instructions: Ankle Sprain (ED) Additional Instructions: Use ibuprofen/Tylenol for pain. Elevate your leg above your heart while resting. Avoid standing or walking for long periods of time Follow-up with your primary doctor Prescriptions: No Action omeprazole 40 mg capsule,delayed release(DR/EC) 40 mg PO DAILY Qty: 30 0RF hydrocortisone acetate [Anusol-HC] 25 mg suppository 25 mg NE BID 5 Days Qty: 12 0RF polyethylene glycol 3350 [Miralax] 17 gram/dose powder 17 g PO DAILY Qty: 238 0RF ciprofloxacin HCl 250 mg tablet 250 mg PO BID Qty: 14 0RF prochlorperazine maleate [Compazine] 10 mg tablet 10 mg PO BID PRN (Reason: nausea and vomiting) Qty: 14 0RF aripiprazole 5 mg tablet 5 mg PO DAILY diphenhydramine HCl [Benadryl] 25 mg capsule 25 mg PO TID PRN fluticasone furoate-vilanterol [Breo Ellipta] 200-25 mcg/dose blister with device 1 inh inhalation DAILY bupropion HCl 150 mg tablet extended release 24 hr 150 mg PO QAM escitalopram oxalate 20 mg tablet 20 mg PO DAILY ferrous sulfate 325 mg (65 mg iron) tablet 325 mg PO DAILY 5-hydroxytryptophan (5-HTP) 50 mg capsule 25 mg PO BID lamotrigine 100 mg tablet 100 mg PO DAILY lorazepam 0.5 mg tablet 0.5 mg PO DAILY PRN albuterol 90 mcg/actuation aerosol inhalation sennosides-docusate sodium [Senna with Docusate Sodium] 8.6-50 mg tablet 1 tab-cap PO BEDTIME Vyvanse 20 mg capsule 20 mg PO DAILY Stand Alone Forms: Work/School Release
== END 2023-03-18 12:25 | disposition home or self-care (01) ==
PROVIDERS: Emergency Provider Emergency Medicine Emergency Medical Services
DX: S93.401A Sprain of unspecified ligament of right ankle, initial encounter (principal); W10.9XXA Fall (on) (from) unspecified stairs and steps, initial encounter; Y93.9 Activity, unspecified; Y92.9 Unspecified place or not applicable; Y99.9 Unspecified external cause status; M25.571 Pain in right ankle and joints of right foot
CPT/HCPCS: 99282

== ENCOUNTER 2023-03-23 15:28 | Outpatient (AMB) | payer OTHER, SELFPAY ==
--- NOTE | 2023-03-23 15:29 | MHC.OFFVIS ---
Intake Intake Visit Reasons: New Pt - right ankle pain, DOI 03/08/23 Intake Note: Pamela is a 27 year old female who presents today as a new patient for right ankle pain, DOI 03/08/23. Patient came in without a walking boot. Patient reports she fell down the stair injuring her right ankle. She states having pain and its causing her a lot of discomfort when she was driving. Having a tingling sensation on the bottom of her foot. Allergies No Known Allergies Allergy (Verified 03/23/23 15:32) HPI New Pt - right ankle pain, DOI 03/08/23 HPI Details 27-year-old female who presents in the office today, as a new patient, for an evaluation of right ankle pain. The patient presented to the ED on 03/08/2023 status post tripping down 3 stairs and falling on her ankle flexed outwards, which occurred on 03/07/2023. X-rays of the right ankle were obtained. She was placed in a walking boot. She returned to the ED on 03/18/2023 due to increased pain. She was instructed to avoid standing for long periods of time. She was told she could take Ibuprofen and elevate the ankle. She claims her pain and discomfort increases when driving. She confirms having a tingling sensation on the bottom of her foot. [facility] Social History (Updated 03/23/23 @ 15:34 by Waleska Heck) Alcohol intake: never Patient Tobacco Use Status: Current someday Tobacco user Current occupational status: employed Current occupation: [employer] Review of Systems Const All systems reviewed & are unremarkable except as noted in HPI and below Physical Exam Const General: cooperative and no acute distress Orientation/consciousness: patient oriented x3 Resp Effort & Inspection: normal respiratory effort and able to speak in complete sentences Cardio Peripheral pulses: Peripheral pulses 2+ throughout Skin General skin exam: no rashes or lesions noted Neuro General: patient oriented x3 Extrem Other: Right ankle: Mild circumferential edema. Able to dorsiflex, plantarflex, pronate, and supinate with slight limitation due to pain and stiffness. Sensation intact. Pedal pulse intact. Assessment & Plan Assessment & Plan (1) Right ankle sprain: Code(s): S93.401A - Sprain of unspecified ligament of right ankle, initial encounter Plan Ms. Edwin Bellamy is a 27-year-old female who presents in the office today, as a new patient, for an evaluation of right ankle pain. The patient presented to the ED on 03/08/2023 status post tripping down 3 stairs and falling on her ankle flexed outwards, which occurred on 03/07/2023. X-rays of the right ankle were obtained. She was placed in a walking boot. She returned to the ED on 03/18/2023 due to increased pain. She was instructed to avoid standing for long periods of time. She was told she could take Ibuprofen and elevate the ankle. She claims her pain and discomfort increases when driving. She confirms having a tingling sensation on the bottom of her foot. The patient does have a boot from the ED. However, she was not wearing that in the office today she presented in [facility]. I educated her that she should be wearing the boot. I would like for her to wear the boot for an additional week and then transition into a more supportive walking shoe. She will be referred to physical therapy to work on ROM and modalities. This will aid with reducing her edema. I instructed her to ice and elevate the ankle as much as possible. Follow up will be in 4 weeks for a ROM check, or sooner if needed. X-rays of the right ankle/foot, obtained on 03/08/2023, revealed: RIGHT ANKLE: The ankle mortise and subtalar joints are maintained normal. There is no visible fracture, dislocation or subluxation. The soft tissues are normal. RIGHT FOOT: There is no visible acute fracture, dislocation or bony abnormality. The soft tissues are normal. Orders: Orders PT Evaluation and Treatment Today S93.401A - Sprain of unspecified ligament of right ankle, initial encounter Patient Instructions: Scribed for Soraya Diamond PA-C by Katerine Snow medical records technician, on 03/23/2023 at 3:29 pm, EST. Coding Level of Care Code New Pt Level 3 (38041) Diagnoses Right ankle sprain S93.401A
== END 2023-03-23 16:28 | disposition home or self-care (01) ==
PROVIDERS: Visit Provider Physician Assistant
DX: S93.401A Sprain of unspecified ligament of right ankle, initial encounter (principal)
CPT/HCPCS: 99203

== ENCOUNTER → 2023-03-23 15:28 | Outpatient (BNVA) | payer OTHER, SELFPAY | PROVIDERS: Visit Provider Physician Assistant | DX: S93.401A Sprain of unspecified ligament of right ankle, initial encounter (principal) | CPT/HCPCS: 99202 ==

== ENCOUNTER 2023-04-19 13:13 | Emergency (ER) | payer OTHER, SELFPAY ==
--- NOTE | ~2023-04-19 | US_ITS ---
EXAMINATION: US ABDOMEN LIMITED CLINICAL INFORMATION: Abdominal pain. COMPARISON: Previous CT of the abdomen and pelvis January 2023 and ultrasound October 2022 TECHNIQUE: Real-time imaging of the right upper quadrant abdominal viscera. FINDINGS: PANCREAS: Normal. LIVER: Normal. The liver is normal in size. The liver contour is normal. Parenchymal echogenicity is normal. No focal hepatic lesion. There is no intrahepatic biliary duct dilatation seen. GALLBLADDER: Normal. The gallbladder is physiologically distended without evidence of stones, sludge, polyps, wall thickening or pericholecystic fluid. COMMON BILE DUCT: Normal in caliber measuring 0.4 cm in diameter. RIGHT KIDNEY: 9 mm cyst in the midpole. No imaging follow-up recommended. Multiple small echogenic foci without twinkle artifact. No stone seen on CT January 2023 and these probably representing vascular reflectors as opposed to small stones. No hydronephrosis. The kidney measures 9 cm in maximum dimension. FREE FLUID: None. US/US abdomen limited IMPRESSION: No cause for abdominal pain seen.
[2023-04-19 13:29] VITALS: BP 119/76; PULSE 95; RESP 19; TEMP 36.6; O2SAT 99; BMI 26.3
--- NOTE | 2023-04-19 13:32 | ED_ITS ---
HPI - General Adult General Chief complaint: Abdominal Pain Stated complaint: Low Abdominal Pain DX W/ H Pylori Time Seen by Provider: 04/19/23 15:25 Source: patient Mode of arrival: ambulatory Limitations: no limitations History of Present Illness HPI narrative: Patient with history of H pylori partially treated few years ago comes here for similar symptoms with nausea and upper abdominal pain with chronic lower abdominal pain with history of ovarian cyst no vomiting no urinary complaints no fevers or chills Related Data Home Medications Medication Instructions Recorded Confirmed 5-hydroxytryptophan (5-HTP) 50 mg 25 mg PO BID 12/21/22 01/24/23 capsule albuterol 90 mcg/actuation aerosol mcg inhalation 12/21/22 01/24/23 inhaler aripiprazole 5 mg tablet 5 mg PO DAILY 12/21/22 01/24/23 bupropion HCl 150 mg 24 hr tablet, 150 mg PO QAM 12/21/22 01/24/23 extended release diphenhydramine HCl 25 mg capsule 25 mg PO TID PRN 12/21/22 01/24/23 (Benadryl) escitalopram oxalate 20 mg tablet 20 mg PO DAILY 12/21/22 01/24/23 ferrous sulfate 325 mg (65 mg 325 mg PO DAILY 12/21/22 01/24/23 iron) tablet fluticasone furoate 200 1 inh inhalation DAILY 12/21/22 01/24/23 mcg-vilanterol 25 mcg/dose inhalation powder (Breo Ellipta) lamotrigine 100 mg tablet 100 mg PO DAILY 12/21/22 01/24/23 lisdexamfetamine 20 mg capsule 20 mg PO DAILY 12/21/22 01/24/23 (Vyvanse) lorazepam 0.5 mg tablet 0.5 mg PO DAILY PRN 12/21/22 01/24/23 sennosides 8.6 mg-docusate sodium 1 tab-cap PO BEDTIME 12/21/22 01/24/23 50 mg tablet (Senna with Docusate Sodium) Previous Rx's Medication Instructions Recorded omeprazole 40 mg capsule,delayed 40 mg PO DAILY #30 caps 12/21/22 release hydrocortisone acetate 25 mg 25 mg MS BID 5 days #12 ea 01/18/23 rectal suppository (Anusol-HC) polyethylene glycol 3350 17 17 g PO DAILY #238 grams 01/18/23 gram/dose oral powder (Miralax) ciprofloxacin HCl 250 mg tablet 250 mg PO BID #14 tabs 01/24/23 prochlorperazine maleate 10 mg 10 mg PO BID PRN nausea and 01/24/23 tablet (Compazine) vomiting #14 tabs amoxicillin 500 mg capsule 1,000 mg (2 x 500 mg) PO Q12H #56 04/19/23 caps clarithromycin 500 mg tablet 500 mg PO BID #28 tabs 04/19/23 ondansetron 4 mg disintegrating 4 mg PO Q6-8H PRN nausea and 04/19/23 tablet vomiting #10 tabs pantoprazole 40 mg tablet,delayed 40 mg PO DAILY #30 tabs 04/19/23 release (Protonix) Allergies Allergy/AdvReac Type Severity Reaction Status Date / Time No Known Allergies Allergy Verified 04/19/23 13:29 Review of Systems 2 Review of Systems: Yes all other systems are reviewed and are negative [facility] Social History Social History Alcohol intake: never Patient Tobacco Use Status: Current someday Tobacco user Smoked in Last 30 Days: No Use of substances other than those prescribed or required for medical reasons: No Advance Directives: No Patient : No Current occupational status: employed Current occupation: [employer] Physical Exam ED Vital Signs: Vital Signs - 24 hr 04/19/23 13:29 04/19/23 15:51 Temperature 98 F 98.2 F Pulse Rate 95 92 Respiratory Rate 19 16 Blood Pressure 119/76 107/72 Pulse Oximetry 99 98 Oxygen Delivery Method Room Air Room Air BMI result Body Mass Index 26.3 Appearance: Alert. Oriented X3. No acute distress. Eyes: PERRLA, No Nystagmus ENT: Pharynx normal. Oral Mucosa moist Neck: Normal inspection. Neck supple. CVS: Normal heart rate and rhythm. Pulses normal. Respiratory: No respiratory distress. Equal air entry bilateral, no wheezing/rales/rhonchi Abdomen: Soft, mild tenderness epigastric and suprapubic area. Bowel sounds are present, no mass palpable, no CVA tenderness Skin: Skin warm and dry. Normal skin color. Normal skin turgor. Extremities: No lower extremity edema. No calf tenderness Neuro: Oriented X 3. No motor deficit. No sensory deficit.No cerebellar signs , cranial nerves II-XII intact Course Course Course Narrative: RME- 27-year-old female presents for evaluation of abdominal pain. She reports that she had been treated for H pylori in the past the not complete the medication but today is complaining of right lower abdominal pain. Plan for labs, UA and test Medications Administered Discontinued Medications Generic Name Dose Route Start Last Admin Trade Name Freq PRN Reason Stop Dose Admin Al Hydroxide/Mg Hydroxide 30 ml 04/19/23 15:48 04/19/23 15:58 Magnesium Hydrox/Alum Hydrox 30 Ml Oral.Susp PO 04/19/23 15:49 30 ml ONCE ONE Administration Omeprazole 40 mg 04/19/23 15:48 04/19/23 15:58 Omeprazole 40 Mg Capsule.Dr PO 04/19/23 15:49 40 mg ONCE ONE Administration Ondansetron HCl 4 mg 04/19/23 15:48 04/19/23 15:58 Ondansetron Odt 4 Mg Tab.Rapdis TRANSLINGU 04/19/23 15:49 4 mg ONCE ONE Administration Medical Decision Making Medical Decision Making [facility] Narrative: Patient with H pylori gastritis symptoms discharge patient home on triple treatment, ultrasound and labs are stable Differential Diagnosis Differential Diagnoses: The differential diagnosis associated with the presentation includes Ovarian cyst/gallstones/pancreatitis/kidney stone/UTI Lab Data 04/19/23 13:40 04/19/23 13:40 Labs: Lab Results 04/19/23 04/19/23 Range/Units 13:40 14:54 WBC 7.9 (4.8-10.8) X10*3/uL RBC 4.80 (4.20-5.50) X10*6/uL Hgb 14.7 (12.0-16.0) g/dl Hct 42.3 (37.0-47.0) % MCV 88.1 (80.0-98.0) fL MCH 30.6 (27.0-33.0) pg MCHC 34.8 (31.0-35.0) g/dl RDW 12.8 (11.0-16.0) % Plt Count 377 (160-400) X10*3/uL MPV 9.5 (9.4-12.3) fL Immature Gran % (Auto) 0.4 (0.0-0.4) % Neut % (Auto) 63.4 (45-73) % Lymph % (Auto) 26.5 (20-40) % [place] % (Auto) 8.1 (2-11) % Eos % (Auto) 1.1 (0-4) % Baso % (Auto) 0.5 (0-2) % Lymph # (Auto) 2.1 (1.2-4.9) X10*3/uL [place] # (Auto) 0.6 (0.1-1.2) X10*3/uL Eos # (Auto) 0.1 (0.0-0.4) X10*3/uL Baso # (Auto) 0.0 (0.0-0.2) X10*3/uL Abs Immat Gran (auto) 0.03 (0.00-0.03) X10*3/uL Absolute Neuts (auto) 5.0 (2.0-8.3) x10*3/uL Absolute Nucleated RBC 0.000 (0.0-0.012) X10*3/uL Nucleated RBC % (auto) 0.0 (0.0-0.2) /100WBC Sodium 137 (135-145) mmol/L Potassium 4.4 (3.3-5.1) mmol/L Chloride 105 (96-108) mmol/L Carbon Dioxide 27 (22-29) mmol/L Anion Gap 9 L (12-20) BUN 11 (9-16) mg/dL Creatinine 0.83 (0.5-1.4) mg/dL Estim Creat Clear Calc 77.4 Estimated GFR > 60 Random Glucose 80 (60-115) mg/dL Calcium 9.8 (8.4-10.2) mg/dL Total Bilirubin 0.6 (0.0-1.0) mg/dL AST 18 (5-31) U/L ALT 13 (0-31) U/L Alkaline Phosphatase 73 (39-117) U/L Total Protein 7.7 (6.5-8.0) g/dL Albumin 4.8 (3.5-5.0) g/dL Lipase 69 (8-78) U/L Urine Color Yellow Urine Appearance Cloudy Urine pH 8.5 (5.0-9.0) Ur Specific [place] 1.025 (1.005-1.025) Urine Protein Negative (Neg-Trace) mg/dL Urine Glucose (UA) Negative (Negative) mg/dL Urine Ketones Negative (Negative) mg/dL Urine Blood Negative (Negative) Urine Nitrite Negative (Negative) Ur Leukocyte Esterase Negative (Negative) Urine RBC 0-2 (0-2) /HPF Urine WBC 0-5 (0-5) /HPF Ur Squamous Epith Cells 3-5 (0-2) /HPF Urine Bacteria None Seen (None Seen) Hyaline Casts 0-2 (0-2) /LPF Urine Test NEGATIVE (NEGATIVE) Discharge Plan Discharge Clinical Impression: H. pylori infection Patient Disposition: Home, Self-Care Instructions: Helicobacter Pylori (ED) Additional Instructions: Take medication as prescribed and follow with gastroenterology if not better Prescriptions: New amoxicillin 500 mg capsule 1,000 mg PO Q12H Qty: 56 0RF pantoprazole [Protonix] 40 mg tablet,delayed release (DR/EC) 40 mg PO DAILY Qty: 30 0RF clarithromycin 500 mg tablet 500 mg PO BID Qty: 28 0RF ondansetron 4 mg tablet,disintegrating 4 mg PO Q6-8H PRN (Reason: nausea and vomiting) Qty: 10 0RF No Action omeprazole 40 mg capsule,delayed release(DR/EC) 40 mg PO DAILY Qty: 30 0RF hydrocortisone acetate [Anusol-HC] 25 mg suppository 25 mg MS BID 5 Days Qty: 12 0RF polyethylene glycol 3350 [Miralax] 17 gram/dose powder 17 g PO DAILY Qty: 238 0RF ciprofloxacin HCl 250 mg tablet 250 mg PO BID Qty: 14 0RF prochlorperazine maleate [Compazine] 10 mg tablet 10 mg PO BID PRN (Reason: nausea and vomiting) Qty: 14 0RF aripiprazole 5 mg tablet 5 mg PO DAILY diphenhydramine HCl [Benadryl] 25 mg capsule 25 mg PO TID PRN fluticasone furoate-vilanterol [Breo Ellipta] 200-25 mcg/dose blister with device 1 inh inhalation DAILY bupropion HCl 150 mg tablet extended release 24 hr 150 mg PO QAM escitalopram oxalate 20 mg tablet 20 mg PO DAILY ferrous sulfate 325 mg (65 mg iron) tablet 325 mg PO DAILY 5-hydroxytryptophan (5-HTP) 50 mg capsule 25 mg PO BID lamotrigine 100 mg tablet 100 mg PO DAILY lorazepam 0.5 mg tablet 0.5 mg PO DAILY PRN albuterol 90 mcg/actuation aerosol inhalation sennosides-docusate sodium [Senna with Docusate Sodium] 8.6-50 mg tablet 1 tab-cap PO BEDTIME Vyvanse 20 mg capsule 20 mg PO DAILY Referrals: Isaac Case MD [Physician] - 2 weeks Interventions: ED Discharge Assessment Last Done: 04/19/23 17:26 Discharge Date/Time: 04/19/23 17:27
[2023-04-19 13:56] LABS: MANUAL DIFF FLAG NO
[2023-04-19 13:57] LABS: Basophils Percent Auto 0.5 % (0-2); Eosinophils Absolute Auto 0.1 X10*3/uL (0.0-0.4); Eosinophils Percent Auto 1.1 % (0-4); Hematocrit 42.3 % (37.0-47.0); Hemoglobin 14.7 g/dl (12.0-16.0); Imm Gran Abs Auto 0.03 X10*3/uL (0.00-0.03); Imm Gran Pct Auto 0.4 % (0.0-0.4); Lymphocytes Absolute Auto 2.1 X10*3/uL (1.2-4.9); Lymphocytes Percent Auto 26.5 % (20-40); Mean Corpuscular HGB Conc 34.8 g/dl (31.0-35.0); Mean Corpuscular Hemoglobin 30.6 pg (27.0-33.0); Mean Corpuscular Volume 88.1 fL (80.0-98.0); Mean Platelet Volume 9.5 fL (9.4-12.3); Monocytes Absolute Auto 0.6 X10*3/uL (0.1-1.2); Monocytes Percent Auto 8.1 % (2-11); Neutrophils Percent Auto 63.4 % (45-73); Platelet Count 377 X10*3/uL (160-400); Red Cell Distribution Width 12.8 % (11.0-16.0); White Blood Count 7.9 X10*3/uL (4.8-10.8)
[2023-04-19 14:15] LABS: Alanine Aminotransferase 13 U/L (0-31); Albumin Level 4.8 g/dL (3.5-5.0); Alkaline Phosphatase 73 U/L (39-117); Anion Gap 9 (12-20); Aspartate Amino Transferase 18 U/L (5-31); Bilirubin Total 0.6 mg/dL (0.0-1.0); Blood Urea Nitrogen 11 mg/dL (9-16); Calcium 9.8 mg/dL (8.4-10.2); Carbon Dioxide 27 mmol/L (22-29); Chloride 105 mmol/L (96-108); Creatinine Clr Calc Pharmacy 77.4; Estimated Glomerular Filt Rate > 60; Glucose Random 80 mg/dL (60-115); Lipase 69 U/L (8-78); Potassium 4.4 mmol/L (3.3-5.1); Sodium 137 mmol/L (135-145); Total Protein 7.7 g/dL (6.5-8.0)
[2023-04-19 15:06] LABS: Appearance Urine Cloudy; Color Urine Yellow; Glucose Urine UA Negative (Negative); Leukocyte Esterase Urine Negative (Negative); Nitrite Urine Negative (Negative); PH 8.5 (5.0-9.0); Specific Gravity - Urine 1.025 (1.005-1.025); UPreg QC Valid YES; Urine Blood Negative (Negative); Urine Ketones Negative (Negative); Urine Pregnancy NEGATIVE (NEGATIVE); Urine Protein Negative (Neg-Trace)
[2023-04-19 15:08] LABS: Bacteria Urine None Seen (None Seen); Hyaline Casts Urine 0-2 /LPF (0-2); RBC Urine 0-2 /HPF (0-2); WBC Urine 0-5 /HPF (0-5)
[2023-04-19 15:51] VITALS: BP 107/72; PULSE 92; RESP 16; TEMP 36.8; O2SAT 98
[2023-04-19] MEDS: Omeprazole 40 MG CAPSULE.DR PO (15:58)
[2023-04-19] MEDS: Ondansetron ODT 4 MG TAB.RAPDIS TRANSLINGU (15:58)
[2023-04-19] MEDS: Magnesium Hydrox/Alum Hydrox 30 ML ORAL.SUSP PO (15:58)
== END 2023-04-19 17:27 | disposition home or self-care (01) ==
PROVIDERS: Physician Assistant; Emergency Provider Internal Medicine
DX: R10.31 Right lower quadrant pain (principal); B96.81 Helicobacter pylori [H. pylori] as the cause of diseases classified elsewhere; R11.0 Nausea; Z79.899 Other long term (current) drug therapy
CPT/HCPCS: 36415; 76705; 80053; 81001; 81025; 83690; 85025; 99284

== ENCOUNTER 2023-06-16 15:52 | Emergency (ER) | payer OTHER, SELFPAY ==
--- NOTE | ~2023-06-16 | US_ITS ---
EXAMINATION: US ABDOMEN LIMITED CLINICAL INFORMATION: Right upper quadrant pain, nausea and vomiting. COMPARISON: Previous abdominal ultrasound April [address] of the abdomen and pelvis January 2023 TECHNIQUE: Real-time imaging of the right upper quadrant abdominal viscera. FINDINGS: PANCREAS: Not well visualized due to bowel gas LIVER: Normal. The liver is normal in size. The liver contour is normal. Parenchymal echogenicity is normal. No focal hepatic lesion. There is no intrahepatic biliary duct dilatation seen. GALLBLADDER: Gallbladder is normal in size. There is a 2 x 3 mm echogenic density that does not move or shadow adjacent to the gallbladder wall probably representing small gallbladder wall polyp. No definite gallstones. Gallbladder wall. No pericholecystic COMMON BILE DUCT: Normal in caliber measuring 0.3 cm in diameter. RIGHT KIDNEY: Small punctate echogenic foci questionable for small stones versus vascular reflectors. No stone is seen on previous CT January 2023. 6 mm cyst in the midpole. No imaging follow-up recommended. No hydronephrosis. The kidney measures 9.5 cm in maximum dimension. FREE FLUID: None. US/US abdomen limited IMPRESSION: Small gallbladder wall polyp. Small echogenic foci in the right kidney questionable for small renal stones versus vascular reflectors. Nonvisualization of the pancreas.
--- NOTE | 2023-06-16 17:05 | ED.URI ---
HPI - URI/Sore Throat General Chief Complaint: Nausea/Vomiting/Diarrhea Stated Complaint: Flu like symptoms Time Seen by Provider: 06/16/23 18:32 Source: patient Mode of arrival: ambulatory Limitations: no limitations History of Present Illness HPI Narrative: 28-year-old female who presents emergency department for evaluation of lightheadedness, sore throat, bilateral ear pain, stomach pain, nausea, vomiting and abdominal pain. Patient states she has been sick for approximately 2-3 days. She states that while she was at work she began to feel lightheaded. Her abdominal pain also became worse. She states the pain is located on the right side of her belly and in her epigastric area she describes as a pressure pain which is intermittent. She states she has had similar pain in the past and has been treated for H pylori twice. She states however she is not certain if she completed the antibiotic course when she had H pylori. Patient states that her symptoms got worse and she had to leave work and she came to emergency department for evaluation. Related Data Home Medications Medication Instructions Recorded Confirmed 5-hydroxytryptophan (5-HTP) 50 mg 25 mg PO BID 12/21/22 01/24/23 capsule albuterol 90 mcg/actuation aerosol mcg inhalation 12/21/22 01/24/23 inhaler aripiprazole 5 mg tablet 5 mg PO DAILY 12/21/22 01/24/23 bupropion HCl 150 mg 24 hr tablet, 150 mg PO QAM 12/21/22 01/24/23 extended release diphenhydramine HCl 25 mg capsule 25 mg PO TID PRN 12/21/22 01/24/23 (Benadryl) escitalopram oxalate 20 mg tablet 20 mg PO DAILY 12/21/22 01/24/23 ferrous sulfate 325 mg (65 mg 325 mg PO DAILY 12/21/22 01/24/23 iron) tablet fluticasone furoate 200 1 inh inhalation DAILY 12/21/22 01/24/23 mcg-vilanterol 25 mcg/dose inhalation powder (Breo Ellipta) lamotrigine 100 mg tablet 100 mg PO DAILY 12/21/22 01/24/23 lisdexamfetamine 20 mg capsule 20 mg PO DAILY 12/21/22 01/24/23 (Vyvanse) lorazepam 0.5 mg tablet 0.5 mg PO DAILY PRN 12/21/22 01/24/23 sennosides 8.6 mg-docusate sodium 1 tab-cap PO BEDTIME 12/21/22 01/24/23 50 mg tablet (Senna with Docusate Sodium) Previous Rx's Medication Instructions Recorded omeprazole 40 mg capsule,delayed 40 mg PO DAILY #30 caps 12/21/22 release hydrocortisone acetate 25 mg 25 mg [place] BID 5 days #12 ea 01/18/23 rectal suppository (Anusol-HC) polyethylene glycol 3350 17 17 g PO DAILY #238 grams 01/18/23 gram/dose oral powder (Miralax) ciprofloxacin HCl 250 mg tablet 250 mg PO BID #14 tabs 01/24/23 prochlorperazine maleate 10 mg 10 mg PO BID PRN nausea and 01/24/23 tablet (Compazine) vomiting #14 tabs amoxicillin 500 mg capsule 1,000 mg (2 x 500 mg) PO Q12H #56 04/19/23 caps clarithromycin 500 mg tablet 500 mg PO BID #28 tabs 04/19/23 ondansetron 4 mg disintegrating 4 mg PO Q6-8H PRN nausea and 04/19/23 tablet vomiting #10 tabs pantoprazole 40 mg tablet,delayed 40 mg PO DAILY #30 tabs 04/19/23 release (Protonix) ondansetron 4 mg disintegrating 4 mg PO Q6-8H PRN nausea and 06/16/23 tablet vomiting #14 tabs Allergies Allergy/AdvReac Type Severity Reaction Status Date / Time No Known Allergies Allergy Verified 06/16/23 17:05 Review of Systems Review of Systems: Yes all other systems are reviewed and are negative [facility] Past Medical History [facility] Narrative: Past medical history: H pylori, gastritis, depression, anxiety, PTSD, borderline personality disorder, ADHD. Surgical history: 11/06/2021. Social History Social History Alcohol intake: never Patient Tobacco Use Status: Current someday Tobacco user Smoked in Last 30 Days: Yes Use of substances other than those prescribed or required for medical reasons: No Advance Directives: No Advance Directives Information Provided: No Patient : No Current occupational status: employed Current occupation: [employer] Physical Exam Vital Signs: Vital Signs: Last Vital Signs Temp 98.4 F 11/10/23 18:29 Pulse 104 H 06/16/23 18:29 Resp 16 06/16/23 18:29 BP 106/64 06/16/23 18:29 Pulse Ox 97 06/16/23 18:29 O2 Del Method Room Air 06/16/23 18:29 BMI result Body Mass Index 26.8 Vital signs revealed elevated heart rate of 104 otherwise unremarkable Exam: General: Awake, alert in no distress Head: Normocephalic, atraumatic EENT: PERRL, Lids normal, sclera normal, conjunctiva normal, nose normal , ears normal, throat without erythema or exudates Neck: Supple, no adenopathy, no trachea midline or C-spine tenderness Lung: breath sounds symmetric, no wheezing, rales or rhonchi Chest: symmetric movement, nontender Heart: regular rate and rhythm, normal S1, S2 no murmurs or rubs Abdomen: soft, moderate epigastric tenderness, mild to moderate right upper quadrant and right lower quadrant tenderness, nondistended, normal bowel sounds Back: no vertebral tenderness, no CVAT Extremities: no deformities, moves all extremities symmetrically Neuro: Awake, alert, oriented, normal speech, moves all extremities symmetrically Psych: Pleasant, cooperative Course Course Course Narrative: This is an RME: Additional HPI, ROS, PE not included below will be deferred to primary provider. patient 28-year-old female who presents to the emergency department for evaluation of symptoms x 2 days. Dizziness, fatigue, tactile fever, nausea and vomiting, RUQ ABD pain, sore throat, left ear pain. Sick contacts at work Plan: Viral testing, strep, labs Medications Administered Discontinued Medications Generic Name Dose Route Start Last Admin Trade Name Gideonq PRN Reason Stop Dose Admin Al Hydroxide/Mg Hydroxide 30 ml 06/16/23 19:13 06/16/23 19:46 Magnesium Hydrox/Alum Hydrox 30 Ml Oral.Susp PO 06/16/23 19:14 30 ml ONCE STA Administration Belladonna Alkaloids/Phenobarbital 10 ml 06/16/23 19:13 06/16/23 19:46 Phenobarb/Hyoscy/Atropine/Scop 10 Ml Elixir PO 06/16/23 19:14 10 ml ONCE ONE Administration Lidocaine HCl 10 ml 06/16/23 19:13 06/16/23 19:46 Lidocaine Hcl Viscous 2 % 15 Ml Solution PO 06/16/23 19:14 10 ml ONCE ONE Administration Ondansetron HCl 4 mg 06/16/23 19:13 06/16/23 19:46 Ondansetron Odt 4 Mg Tab.Karan [place] 06/16/23 19:14 4 mg ONCE STA Administration Medical Decision Making Medical Decision Making MDM Narrative: 28-year-old female with history of H pylori, gastritis, depression, anxiety, PTSD, borderline personality disorder, ADHD who presents emergency department for evaluation of 3 days of lightheadedness, abdominal pain, nausea. Patient's symptoms got worse prior to coming to emergency department. Patient states she had similar abdominal pain in the past. Following evaluation was ordered: CBC, CMP, lipase, COVID-19, rapid strep test, urine test I ordered Zofran ODT 4 mg trans lingual, viscous lidocaine 10 mL, 10 mL and Maalox 30 mL orally. 19:18 Patient's laboratory evaluation revealed an elevated white blood count 20318, elevated lipase 152 but was not 3 times normal, COVID-19 was negative, rapid strep was negative. 20:09 Patient's abdominal ultrasound did not reveal a clear cause for the patient's abdominal pain, there were incidental findings including gallbladder polyp and possible renal stone. Patient is feeling better after the above treatment. Patient most likely has gastritis versus a viral syndrome. Patient will be treated with Prilosec 20 mg once a day for 1 month, Zofran ODT 4 mg every 6-8 hours as needed for nausea and vomiting and Tylenol 500 mg 2 pills every 6 hours as needed for pain or fever. Was given printed and verbal instructions discharged home Differential Diagnosis Differential Diagnoses: The differential diagnosis associated with the presentation includes Differential diagnosis includes was not limited to viral syndrome, COVID-19 infection, strep throat, otitis media, biliary disease, , pancreatitis. Admission/Observation Consideration of admission/observation: Escalation of care including admission/observation considered Lab Data [facility] Lab Attestation statement: I reviewed the patient's lab results. Please see MDM above 06/16/23 17:48 06/16/23 17:48 Labs: Lab Results 06/16/23 Range/Units 17:48 WBC 11.8 H (4.8-10.8) X10*3/uL RBC 4.45 (4.20-5.50) X10*6/uL Hgb 13.9 (12.0-16.0) g/dl Hct 39.3 (37.0-47.0) % MCV 88.3 (80.0-98.0) fL MCH 31.2 (27.0-33.0) pg MCHC 35.4 H (31.0-35.0) g/dl RDW 12.8 (11.0-16.0) % Plt Count 366 (160-400) X10*3/uL MPV 9.7 (9.4-12.3) fL Immature Gran % (Auto) 0.4 (0.0-0.4) % Neut % (Auto) 79.8 H (45-73) % Lymph % (Auto) 13.5 L (20-40) % [place] % (Auto) 5.7 (2-11) % Eos % (Auto) 0.3 (0-4) % Baso % (Auto) 0.3 (0-2) % Lymph # (Auto) 1.6 (1.2-4.9) X10*3/uL [place] # (Auto) 0.7 (0.1-1.2) X10*3/uL Eos # (Auto) 0.0 (0.0-0.4) X10*3/uL Baso # (Auto) 0.0 (0.0-0.2) X10*3/uL Abs Immat Gran (auto) 0.05 H (0.00-0.03) X10*3/uL Absolute Neuts (auto) 9.4 H (2.0-8.3) x10*3/uL Absolute Nucleated RBC 0.000 (0.0-0.012) X10*3/uL Nucleated RBC % (auto) 0.0 (0.0-0.2) /100WBC Sodium 140 (135-145) mmol/L Potassium 4.1 (3.3-5.1) mmol/L Chloride 106 (96-108) mmol/L Carbon Dioxide 26 (22-29) mmol/L Anion Gap 12 (12-20) BUN 13 (9-16) mg/dL Creatinine 0.70 (0.5-1.4) mg/dL Estim Creat Clear Calc 91.8 Estimated GFR > 60 Random Glucose 93 (60-115) mg/dL Calcium 9.6 (8.4-10.2) mg/dL Total Bilirubin 0.5 (0.0-1.0) mg/dL AST 16 (5-31) U/L ALT 11 (0-31) U/L Alkaline Phosphatase 84 (39-117) U/L Total Protein 7.8 (6.5-8.0) g/dL Albumin 4.7 (3.5-5.0) g/dL Lipase 152 H (8-78) U/L Urine Test NEGATIVE (NEGATIVE) COVID-19 (FOSTER) Negative (Negative) COVID-19 Clin Com See Note S. pyogenes GrpA ANKIT Negative (Negative) Radiology Impression Discussion of test interpretation with radiology: I have reviewed the radiologist's reading. Radiologist Impression: US abdomen limited IMPRESSION: Small gallbladder wall polyp. Small echogenic foci in the right kidney questionable for small renal stones versus vascular reflectors. Nonvisualization of the pancreas. Dictated By: Renetta Lopez MD Discharge Plan Discharge Clinical Impression: Gastritis, Viral syndrome Patient Disposition: Home, Self-Care Instructions: Gastritis (ED), Viral Syndrome (ED) Additional Instructions: Your blood work was unremarkable. Your urine test was negative. Your COVID test was negative. Your rapid strep was negative. Take Prilosec (omeprazole) 20 mg pills, 1 pill once a day for 1 month. This medication shuts off your acid production and lets the inflammation in your stomach and esophagus heal. Take Zofran ODT 4 mg pills, 1 pill dissolved in your mouth every 8 hours as needed for nausea and vomiting. Follow-up with your doctor in 2 days. Please return to the emergency department if your symptoms get worse or if you develop any symptoms that are concerning to you. Prescriptions: New ondansetron 4 mg tablet,disintegrating 4 mg PO Q6-8H PRN (Reason: nausea and vomiting) Qty: 14 0RF No Action omeprazole 40 mg capsule,delayed release(DR/EC) 40 mg PO DAILY Qty: 30 0RF hydrocortisone acetate [Anusol-HC] 25 mg suppository 25 mg MN BID 5 Days Qty: 12 0RF polyethylene glycol 3350 [Miralax] 17 gram/dose powder 17 g PO DAILY Qty: 238 0RF amoxicillin 500 mg capsule 1,000 mg PO Q12H Qty: 56 0RF pantoprazole [Protonix] 40 mg tablet,delayed release (DR/EC) 40 mg PO DAILY Qty: 30 0RF clarithromycin 500 mg tablet 500 mg PO BID Qty: 28 0RF ondansetron 4 mg tablet,disintegrating 4 mg PO Q6-8H PRN (Reason: nausea and vomiting) Qty: 10 0RF ciprofloxacin HCl 250 mg tablet 250 mg PO BID Qty: 14 0RF prochlorperazine maleate [Compazine] 10 mg tablet 10 mg PO BID PRN (Reason: nausea and vomiting) Qty: 14 0RF aripiprazole 5 mg tablet 5 mg PO DAILY diphenhydramine HCl [Benadryl] 25 mg capsule 25 mg PO TID PRN fluticasone furoate-vilanterol [Breo Ellipta] 200-25 mcg/dose blister with device 1 inh inhalation DAILY bupropion HCl 150 mg tablet extended release 24 hr 150 mg PO QAM escitalopram oxalate 20 mg tablet 20 mg PO DAILY ferrous sulfate 325 mg (65 mg iron) tablet 325 mg PO DAILY 5-hydroxytryptophan (5-HTP) 50 mg capsule 25 mg PO BID lamotrigine 100 mg tablet 100 mg PO DAILY lorazepam 0.5 mg tablet 0.5 mg PO DAILY PRN albuterol 90 mcg/actuation aerosol inhalation sennosides-docusate sodium [Senna with Docusate Sodium] 8.6-50 mg tablet 1 tab-cap PO BEDTIME Vyvanse 20 mg capsule 20 mg PO DAILY
[2023-06-16 17:06] VITALS: BP 113/70; PULSE 100; RESP 18; TEMP 36.2; O2SAT 97; BMI 26.8
[2023-06-16 18:00] LABS: MANUAL DIFF FLAG NO
[2023-06-16 18:01] LABS: Basophils Percent Auto 0.3 % (0-2); Eosinophils Percent Auto 0.3 % (0-4); Hematocrit 39.3 % (37.0-47.0); Hemoglobin 13.9 g/dl (12.0-16.0); Imm Gran Abs Auto 0.05 X10*3/uL (0.00-0.03); Imm Gran Pct Auto 0.4 % (0.0-0.4); Lymphocytes Absolute Auto 1.6 X10*3/uL (1.2-4.9); Lymphocytes Percent Auto 13.5 % (20-40); Mean Corpuscular HGB Conc 35.4 g/dl (31.0-35.0); Mean Corpuscular Hemoglobin 31.2 pg (27.0-33.0); Mean Corpuscular Volume 88.3 fL (80.0-98.0); Mean Platelet Volume 9.7 fL (9.4-12.3); Monocytes Absolute Auto 0.7 X10*3/uL (0.1-1.2); Monocytes Percent Auto 5.7 % (2-11); Neutrophils Absolute Auto 9.4 x10*3/uL (2.0-8.3); Neutrophils Percent Auto 79.8 % (45-73); Platelet Count 366 X10*3/uL (160-400); Red Blood Count 4.45 X10*6/uL (4.20-5.50); Red Cell Distribution Width 12.8 % (11.0-16.0); White Blood Count 11.8 X10*3/uL (4.8-10.8)
[2023-06-16 18:05] LABS: UPreg QC Valid YES; Urine Pregnancy NEGATIVE (NEGATIVE)
[2023-06-16 18:07] LABS: IDNOW Serial# 08D9AD1C; Strep A Nucleic Acid Negative (Negative)
[2023-06-16 18:22] LABS: Alanine Aminotransferase 11 U/L (0-31); Albumin Level 4.7 g/dL (3.5-5.0); Alkaline Phosphatase 84 U/L (39-117); Anion Gap 12 (12-20); Aspartate Amino Transferase 16 U/L (5-31); Bilirubin Total 0.5 mg/dL (0.0-1.0); Blood Urea Nitrogen 13 mg/dL (9-16); Calcium 9.6 mg/dL (8.4-10.2); Carbon Dioxide 26 mmol/L (22-29); Chloride 106 mmol/L (96-108); Creatinine Clr Calc Pharmacy 91.8; Estimated Glomerular Filt Rate > 60; Glucose Random 93 mg/dL (60-115); Lipase 152 U/L (8-78); Potassium 4.1 mmol/L (3.3-5.1); Sodium 140 mmol/L (135-145); Total Protein 7.8 g/dL (6.5-8.0)
[2023-06-16 18:23] LABS: COVID-19 Test Negative (Negative); IDNOW Serial# 9DB6401D
[2023-06-16 18:29] VITALS: BP 106/64; PULSE 104; RESP 16; TEMP 36.9; O2SAT 97
[2023-06-16] MEDS: Ondansetron ODT 4 MG TAB.RAPDIS TRANSLINGU (19:46)
[2023-06-16] MEDS: Magnesium Hydrox/Alum Hydrox 30 ML ORAL.SUSP PO (19:46)
[2023-06-16] MEDS: PHENobarb/Hyoscy/Atropine/Scop 10 ML ELIXIR PO (19:46)
[2023-06-16] MEDS: Lidocaine HCl Viscous 2 % 15 ML SOLUTION 10 ML PO (19:46)
== END 2023-06-16 21:08 | disposition home or self-care (01) ==
PROVIDERS: Nurse Practitioner Family; Emergency Provider Emergency Medicine Emergency Medical Services
DX: K29.70 Gastritis, unspecified, without bleeding (principal); B34.9 Viral infection, unspecified; R11.2 Nausea with vomiting, unspecified; R19.7 Diarrhea, unspecified; R10.13 Epigastric pain; J02.9 Acute pharyngitis, unspecified; H92.03 Otalgia, bilateral; R42 Dizziness and giddiness; Z11.52 Encounter for screening for COVID-19; Z20.822 Contact with and (suspected) exposure to COVID-19; Z79.899 Other long term (current) drug therapy
CPT/HCPCS: 76705; 80053; 81025; 83690; 85025; 87635; 87651; 99284

== ENCOUNTER 2023-07-19 12:23 | Emergency (ER) | payer OTHER, SELFPAY ==
[2023-07-19 12:35] VITALS: BP 117/61; PULSE 91; RESP 20; TEMP 36.4; O2SAT 99; BMI 27.7
--- NOTE | 2023-07-19 12:35 | ED.ANXIETY ---
HPI - Anxiety General Chief Complaint: Anxiety Stated Complaint: Anxiety Time Seen by Provider: 07/19/23 14:07 Source: patient Mode of arrival: ambulatory Limitations: no limitations History of Present Illness HPI narrative: Patient is a 28 year old assigned female at with a history of anxiety presenting to the emergency department today after an anxiety attack. Patient states that over the last few hours she had a panic attack and needed to leave work. Patient states that she is feeling much better now and would like a note for work. Patient denies any dizziness, lightheadedness, abdominal pain, nausea, vomiting, fever, chills, blurry vision, double vision, loss of vision, chest pain, difficulty breathing, shortness of breath, back pain, night sweats, pain with urination, increased urinary frequency, increased urinary urgency, blood in her urine or stool, syncope or a near syncopal episode, recent trauma or falls, bowel incontinence, bladder incontinence, bowel retention, bladder retention, or any other complaints at this time. MD complaint: anxiety Place: work Relieving factors: nothing Exacerbating factors: nothing Associated symptoms: denies other symptoms Related Data Home Medications Medication Instructions Recorded Confirmed 5-hydroxytryptophan (5-HTP) 50 mg 25 mg PO BID 12/21/22 01/24/23 capsule albuterol 90 mcg/actuation aerosol mcg inhalation 12/21/22 01/24/23 inhaler aripiprazole 5 mg tablet 5 mg PO DAILY 12/21/22 01/24/23 bupropion HCl 150 mg 24 hr tablet, 150 mg PO QAM 12/21/22 01/24/23 extended release diphenhydramine HCl 25 mg capsule 25 mg PO TID PRN 12/21/22 01/24/23 (Benadryl) escitalopram oxalate 20 mg tablet 20 mg PO DAILY 12/21/22 01/24/23 ferrous sulfate 325 mg (65 mg 325 mg PO DAILY 12/21/22 01/24/23 iron) tablet fluticasone furoate 200 1 inh inhalation DAILY 12/21/22 01/24/23 mcg-vilanterol 25 mcg/dose inhalation powder (Breo Ellipta) lamotrigine 100 mg tablet 100 mg PO DAILY 12/21/22 01/24/23 lisdexamfetamine 20 mg capsule 20 mg PO DAILY 12/21/22 01/24/23 (Vyvanse) lorazepam 0.5 mg tablet 0.5 mg PO DAILY PRN 12/21/22 01/24/23 sennosides 8.6 mg-docusate sodium 1 tab-cap PO BEDTIME 12/21/22 01/24/23 50 mg tablet (Senna with Docusate Sodium) Previous Rx's Medication Instructions Recorded omeprazole 40 mg capsule,delayed 40 mg PO DAILY #30 caps 12/21/22 release hydrocortisone acetate 25 mg 25 mg [place] BID 5 days #12 ea 01/18/23 rectal suppository (Anusol-HC) polyethylene glycol 3350 17 17 g PO DAILY #238 grams 01/18/23 gram/dose oral powder (Miralax) ciprofloxacin HCl 250 mg tablet 250 mg PO BID #14 tabs 01/24/23 prochlorperazine maleate 10 mg 10 mg PO BID PRN nausea and 01/24/23 tablet (Compazine) vomiting #14 tabs amoxicillin 500 mg capsule 1,000 mg (2 x 500 mg) PO Q12H #56 04/19/23 caps clarithromycin 500 mg tablet 500 mg PO BID #28 tabs 04/19/23 ondansetron 4 mg disintegrating 4 mg PO Q6-8H PRN nausea and 04/19/23 tablet vomiting #10 tabs pantoprazole 40 mg tablet,delayed 40 mg PO DAILY #30 tabs 04/19/23 release (Protonix) ondansetron 4 mg disintegrating 4 mg PO Q6-8H PRN nausea and 06/16/23 tablet vomiting #14 tabs Allergies Allergy/AdvReac Type Severity Reaction Status Date / Time No Known Allergies Allergy Verified 07/19/23 12:34 Review of Systems Constitutional: Constitutional: Reports no additional constitutional complaints, Denies chills, Denies fever(s) and Denies night sweats Eyes: Eyes: Reports no additional eye complaints, Denies blurry vision, Denies change in vision, Denies diplopia, Denies eye discharge, Denies loss of vision and Denies eye pain ENT: Denies dizziness Cardiovascular: Cardiovascular: Reports no additional cardiovascular complaints, Denies chest pain, Denies lightheadedness, Denies Loss of Consciousness and Denies dyspnea Respiratory: Respiratory: Reports no additional respiratory complaints and Denies dyspnea Gastrointestinal: Gastrointestinal: Reports no additional gastrointestinal complaints, Denies abdominal pain, Denies melena, Denies hematochezia, Denies change in bowel habits and Denies change in stool character Genitourinary: Genitourinary: Denies hematuria, Denies urinary frequency, Denies dysuria, Denies urinary incontinence, Denies urinary hesitancy and Denies urinary urgency Musculoskeletal: Musculoskeletal: Reports no additional musculoskeletal complaints, Denies numbness and Denies tingling Neurologic: Denies dizziness, Denies loss of vision, Denies numbness and Denies tingling Psychiatric: Psychiatric: Reports anxiety and Reports panic attacks Endocrine: Endocrine: Reports no additional endocrine complaints Hematologic/Lymphatic: Hematologic/Lymphatic: Reports no additional hematologic/lymphatic complaints Allergic/Immunologic: Allergic/Immunologic: Reports no additional allergic/immunologic complaints PMFSH Past Medical History Attestation statement: The following information was validated with the patient. Source: old records reviewed and nursing notes reviewed Social History Social History Alcohol intake: never Patient Tobacco Use Status: Current someday Tobacco user Advance Directives: No Advance Directives Information Provided: No Current occupational status: employed Current occupation: [employer] Physical Exam Vital Signs: Vital Signs: Last Vital Signs Temp 97.5 F 07/19/23 12:35 Pulse 91 07/19/23 12:35 Resp 20 07/19/23 12:35 BP 117/61 07/19/23 12:35 Pulse Ox 99 07/19/23 12:35 O2 Del Method Room Air 07/19/23 12:35 BMI result Body Mass Index 27.7 Const: General: cooperative, no acute distress, alert and awake Nutritional Appearance: well nourished Orientation/consciousness: patient oriented x3 Limitations: no limitations HEENT: Head: Yes normal to inspection and Yes atraumatic Ears: hearing grossly normal bilaterally and external ears normal General nose exam: Normal external nose present, no nasal discharge noted and no epistaxis Face and sinus: Yes normal facial exam, No abrasion and No laceration Mouth: Normal oral and palatal mucosa present, no drooling and no muffled voice Eyes: General: appearance normal, both eyes and all related structures Periorbital: periorbital findings normal Eyelids: Yes eyelids normal Conjunctivae: conjunctivae normal Pupils: Equal, round and reactive pupils present EOM: EOMs intact bilaterally Neck: Neck: Yes normal visual inspection, Yes full ROM and Yes no lymphadenopathy Chest: Chest palpation & inspection: normal inspection of the chest Resp: Effort & Inspection: normal respiratory effort and able to speak in complete sentences Auscultation: clear to auscultation bilaterally Cardio: Rate: regular rate Rhythm: regular rhythm GI: Inspection: Yes normal to inspection Neuro: General: patient oriented x3 and moves all extremities Cranial nerves: Yes Equal, round and reactive pupils present Cognition (Neuro): normal cognition Motor exam (neuro): 5/5 motor strength present throughout Sensory Exam: Normal double simultaneous stimulation for sensation Coordination: [id number] test normal Extrem: General: Yes normal to inspection, Yes full ROM and Yes capillary refill normal Psych: Appearance: grossly normal Mental Status: mental status grossly normal Affect: normal affect Attitude: cooperative Thought process: Normal thought process present Thought content: Normal thought content present Insight: Good insight present (Psych) Course Course Course Narrative: RME: 28yo F w/no sig PMHx c/o slow progressive anxiety attack [employer] FEEDBACK while at work with assoc generalized weakness, GOMEZ, CP, & SOB (which is typical for her anxiety attacks). Denies SI/HI Denies taking any anxiolytic [employer] FEEDBACK EKG ordered Full HPI, ROS and PE to be performed by primary ED provider. Medical Decision Making Medical Decision Making [facility] Narrative: Patient is a 28 year old assigned female at with a history of anxiety presenting to the emergency department today after an anxiety attack. Patient's physical exam was unremarkable. Patient's EKG was unremarkable. I explained my physical exam findings as well as all test results to the patient. I answered all questions asked by the patient. I stressed the importance of the patient taking her medication as prescribed. I stressed the importance of the patient following up with her primary care provider. I stressed the importance of the patient returning to the emergency department immediately if her symptoms were to worsen or if she were to develop any dizziness, shortness of breath, difficulty breathing, chest pain, blurry vision, loss of vision, nausea, vomiting, abdominal pain, fever, chills, back pain, or any other complaints. Patient verbalized agreement and understanding with this treatment plan and discharge. Differential Diagnosis Differential Diagnoses: The differential diagnosis associated with the presentation includes Anxiety Panic attck Independent Interpretation I performed an independent interpretation of an: EKG Interpretation: Vent. Rate: 076 BPM Atrial Rate: 076 BPM P-R Int: 116 ms QRS Dur: 088 ms QT Int: 368 ms P-R-T Axes: 025 020 017 degrees QTc Int: 414 ms Normal sinus rhythm Low voltage QRS Nonspecific T wave abnormality Abnormal ECG When compared with ECG of 12-JAN-2023 07:42, No significant change was found DD/ 1244 Radiology Impression Discussion of test interpretation with radiology: I have reviewed the radiologist's reading. Discharge Plan Discharge Clinical Impression: Acute anxiety Patient Disposition: Home, Self-Care Instructions: Anxiety (ED) Additional Instructions: Follow up with your primary care provider. Return to the emergency department immediately if your symptoms worsen or if you develop any dizziness, shortness of breath, difficulty breathing, chest pain, blurry vision, loss of vision, nausea, vomiting, abdominal pain, fever, chills, back pain, or any other complaints. Prescriptions: No Action omeprazole 40 mg capsule,delayed release(DR/EC) 40 mg PO DAILY Qty: 30 0RF hydrocortisone acetate [Anusol-HC] 25 mg suppository 25 mg MS BID 5 Days Qty: 12 0RF polyethylene glycol 3350 [Miralax] 17 gram/dose powder 17 g PO DAILY Qty: 238 0RF amoxicillin 500 mg capsule 1,000 mg PO Q12H Qty: 56 0RF pantoprazole [Protonix] 40 mg tablet,delayed release (DR/EC) 40 mg PO DAILY Qty: 30 0RF clarithromycin 500 mg tablet 500 mg PO BID Qty: 28 0RF ondansetron 4 mg tablet,disintegrating 4 mg PO Q6-8H PRN (Reason: nausea and vomiting) Qty: 10 0RF ondansetron 4 mg tablet,disintegrating 4 mg PO Q6-8H PRN (Reason: nausea and vomiting) Qty: 14 0RF ciprofloxacin HCl 250 mg tablet 250 mg PO BID Qty: 14 0RF prochlorperazine maleate [Compazine] 10 mg tablet 10 mg PO BID PRN (Reason: nausea and vomiting) Qty: 14 0RF aripiprazole 5 mg tablet 5 mg PO DAILY diphenhydramine HCl [Benadryl] 25 mg capsule 25 mg PO TID PRN fluticasone furoate-vilanterol [Breo Ellipta] 200-25 mcg/dose blister with device 1 inh inhalation DAILY bupropion HCl 150 mg tablet extended release 24 hr 150 mg PO QAM escitalopram oxalate 20 mg tablet 20 mg PO DAILY ferrous sulfate 325 mg (65 mg iron) tablet 325 mg PO DAILY 5-hydroxytryptophan (5-HTP) 50 mg capsule 25 mg PO BID lamotrigine 100 mg tablet 100 mg PO DAILY lorazepam 0.5 mg tablet 0.5 mg PO DAILY PRN albuterol 90 mcg/actuation aerosol inhalation sennosides-docusate sodium [Senna with Docusate Sodium] 8.6-50 mg tablet 1 tab-cap PO BEDTIME Vyvanse 20 mg capsule 20 mg PO DAILY Referrals: [facility] [place] Family Medicine [Provider Group] (Call to establish and follow up with a primary care provider. If you already have a primary care provider, please follow up with them.) [facility] [place] Primary Care, Shyanne [Provider Group] (Call to establish and follow up with a primary care provider. If you already have a primary care provider, please follow up with them.) [facility] [place] Primary Care,Dion [Provider Group] (Call to establish and follow up with a primary care provider. If you already have a primary care provider, please follow up with them.) Stand Alone Forms: Work/School Release Interventions: ED Discharge Assessment Last Done: 07/19/23 14:49 Discharge Date/Time: 07/19/23 14:49 Print Language: Nepali
--- NOTE | 2023-07-19 12:37 | ECG_ITS ---
Test Reason : CP/ANXIETY Blood Pressure : / mmHG Vent. Rate : 076 BPM Atrial Rate : 076 BPM P-R Int : 116 ms QRS Dur : 088 ms QT Int : 368 ms P-R-T Axes : 025 020 017 degrees QTc Int : 414 ms Normal sinus rhythm Low voltage QRS Nonspecific T wave abnormality Abnormal ECG When compared with ECG of 12-JAN-2023 07:42, No significant change was found Referred By: Pastora Corona Electronically Signed By:Atilio Bryan
== END 2023-07-19 14:49 | disposition home or self-care (01) ==
LOC: HO.ED 14:38
PROVIDERS: Emergency Provider Student in an Organized Health Care Education/Training Program
DX: F41.9 Anxiety disorder, unspecified (principal); F17.200 Nicotine dependence, unspecified, uncomplicated
CPT/HCPCS: 93005; 99283

== ENCOUNTER → 2023-07-19 12:37 | Outpatient (BNV) | payer OTHER, SELFPAY | PROVIDERS: Emergency Provider Student in an Organized Health Care Education/Training Program; Visit Provider Internal Medicine Cardiovascular Disease | DX: R94.31 Abnormal electrocardiogram [ECG] [EKG] (principal) | CPT/HCPCS: 93010 ==

== ENCOUNTER 2023-08-25 21:52 | Emergency (ER) | payer OTHER, SELFPAY ==
--- NOTE | 2023-08-25 | ECG_ITS ---
Test Reason : ANXIETY Blood Pressure : / mmHG Vent. Rate : 087 BPM Atrial Rate : 087 BPM P-R Int : 124 ms QRS Dur : 088 ms QT Int : 360 ms P-R-T Axes : 019 010 016 degrees QTc Int : 433 ms Normal sinus rhythm Nonspecific T wave abnormality Abnormal ECG When compared with ECG of 19-JUL-2023 12:44, No significant change was found Referred By: Generic ED Physician Electronically Signed By:JACOB WOOD
[2023-08-25 22:13] VITALS: BP 138/76; PULSE 91; RESP 18; TEMP 37.1; O2SAT 97; BMI 27.6
[2023-08-25 22:48] LABS: MANUAL DIFF FLAG NO
[2023-08-25 22:50] LABS: Basophils Absolute Auto 0.1 X10*3/uL (0.0-0.2); Basophils Percent Auto 0.5 % (0-2); Eosinophils Absolute Auto 0.1 X10*3/uL (0.0-0.4); Eosinophils Percent Auto 1.2 % (0-4); Hematocrit 43.1 % (37.0-47.0); Hemoglobin 14.7 g/dl (12.0-16.0); Imm Gran Abs Auto 0.03 X10*3/uL (0.00-0.03); Imm Gran Pct Auto 0.3 % (0.0-0.4); Lymphocytes Absolute Auto 3.9 X10*3/uL (1.2-4.9); Lymphocytes Percent Auto 35.5 % (20-40); Mean Corpuscular HGB Conc 34.1 g/dl (31.0-35.0); Mean Corpuscular Hemoglobin 30.2 pg (27.0-33.0); Mean Corpuscular Volume 88.5 fL (80.0-98.0); Mean Platelet Volume 9.1 fL (9.4-12.3); Monocytes Absolute Auto 0.7 X10*3/uL (0.1-1.2); Monocytes Percent Auto 6.5 % (2-11); Neutrophils Absolute Auto 6.2 x10*3/uL (2.0-8.3); Platelet Count 431 X10*3/uL (160-400); Red Blood Count 4.87 X10*6/uL (4.20-5.50)
[2023-08-25 23:02] LABS: COVID-19 Test Negative (Negative); IDNOW Serial# 6674DD1D
[2023-08-25 23:06] LABS: Alanine Aminotransferase 13 U/L (0-31); Albumin Level 4.9 g/dL (3.5-5.0); Alkaline Phosphatase 82 U/L (39-117); Anion Gap 13 (12-20); Aspartate Amino Transferase 16 U/L (5-31); Bilirubin Total 0.3 mg/dL (0.0-1.0); Blood Urea Nitrogen 18 mg/dL (9-16); Calcium 9.8 mg/dL (8.4-10.2); Carbon Dioxide 28 mmol/L (22-29); Chloride 105 mmol/L (96-108); Creatinine Clr Calc Pharmacy 80.6; Estimated Glomerular Filt Rate > 60; Ethanol < 10 mg/dL; Glucose Random 85 mg/dL (60-115); Potassium 4.3 mmol/L (3.3-5.1); Sodium 142 mmol/L (135-145); Total Protein 8.1 g/dL (6.5-8.0)
[2023-08-26 00:39] LABS: Amphetamine Screen Urine POSITIVE (Not Detect); Barbiturates, Urine Not Detected (Not Detect); Benzodiazepines Screen Urine Not Detected (Not Detect); Cannabinoid Screen Urine POSITIVE (Not Detect); Cocaine Screen Urine Not Detected (Not Detect); Fentanyl, urine Not Detected (Not Detect); Opiate Screen Urine Not Detected (Not Detect); Phencyclidine Screen Urine Not Detected (Not Detect)
--- NOTE | 2023-08-26 01:01 | ED.ANXIETY ---
HPI - Anxiety General Chief Complaint: Anxiety Stated Complaint: Anxiety Time Seen by Provider: 08/26/23 01:00 Source: patient Mode of arrival: ambulatory Limitations: no limitations History of Present Illness HPI narrative: Patient history of anxiety/panic attacks/depression on multiple medication does have psychiatrist and therapist to follow felt increase anxious/panic attack at work similar to that in the past denies any suicidal ideation does have depression but stable took her Ativan and Atarax earlier today after arrival in the ER patient feeling much better Related Data Home Medications Medication Instructions Recorded Confirmed 5-hydroxytryptophan (5-HTP) 50 mg 25 mg PO BID 12/21/22 01/24/23 capsule albuterol 90 mcg/actuation aerosol mcg inhalation 12/21/22 01/24/23 inhaler aripiprazole 5 mg tablet 5 mg PO DAILY 12/21/22 01/24/23 bupropion HCl 150 mg 24 hr tablet, 150 mg PO QAM 12/21/22 01/24/23 extended release diphenhydramine HCl 25 mg capsule 25 mg PO TID PRN 12/21/22 01/24/23 (Benadryl) escitalopram oxalate 20 mg tablet 20 mg PO DAILY 12/21/22 01/24/23 ferrous sulfate 325 mg (65 mg 325 mg PO DAILY 12/21/22 01/24/23 iron) tablet fluticasone furoate 200 1 inh inhalation DAILY 12/21/22 01/24/23 mcg-vilanterol 25 mcg/dose inhalation powder (Breo Ellipta) lamotrigine 100 mg tablet 100 mg PO DAILY 12/21/22 01/24/23 lisdexamfetamine 20 mg capsule 20 mg PO DAILY 12/21/22 01/24/23 (Vyvanse) lorazepam 0.5 mg tablet 0.5 mg PO DAILY PRN 12/21/22 01/24/23 sennosides 8.6 mg-docusate sodium 1 tab-cap PO BEDTIME 12/21/22 01/24/23 50 mg tablet (Senna with Docusate Sodium) Previous Rx's Medication Instructions Recorded omeprazole 40 mg capsule,delayed 40 mg PO DAILY #30 caps 12/21/22 release hydrocortisone acetate 25 mg 25 mg [place] BID 5 days #12 ea 01/18/23 rectal suppository (Anusol-HC) polyethylene glycol 3350 17 17 g PO DAILY #238 grams 01/18/23 gram/dose oral powder (Miralax) ciprofloxacin HCl 250 mg tablet 250 mg PO BID #14 tabs 01/24/23 prochlorperazine maleate 10 mg 10 mg PO BID PRN nausea and 01/24/23 tablet (Compazine) vomiting #14 tabs amoxicillin 500 mg capsule 1,000 mg (2 x 500 mg) PO Q12H #56 04/19/23 caps clarithromycin 500 mg tablet 500 mg PO BID #28 tabs 04/19/23 ondansetron 4 mg disintegrating 4 mg PO Q6-8H PRN nausea and 04/19/23 tablet vomiting #10 tabs pantoprazole 40 mg tablet,delayed 40 mg PO DAILY #30 tabs 04/19/23 release (Protonix) ondansetron 4 mg disintegrating 4 mg PO Q6-8H PRN nausea and 06/16/23 tablet vomiting #14 tabs Allergies Allergy/AdvReac Type Severity Reaction Status Date / Time No Known Allergies Allergy Verified 08/25/23 22:13 Review of Systems Review of Systems: Yes all other systems are reviewed and are negative PMFSH Past Medical History Onset Date is defined in the Problem List Problems that require an onset date and time if occurred within 24 hrs of arrival to the ED Aortic Dissection and Rupture; Neurologic impairment; Cardiopulmonary Arrest; Endotracheal Intubation; Insertion or Replacement of Mechanical Circulatory Assist Device Medical History (Updated 08/26/23 @ 03:47 by Cristhian Noble MD) Depression Anxiety Social History Social History Alcohol intake: never Patient Tobacco Use Status: Current someday Tobacco user Smoked in Last 30 Days: No Use of substances other than those prescribed or required for medical reasons: No Advance Directives: No Advance Directives Information Provided: Yes Patient : No Current occupational status: employed Current occupation: [employer] Physical Exam Vital Signs: Vital Signs: Last Vital Signs Temp 98.7 F 08/25/23 22:13 Pulse 80 08/26/23 01:31 Resp 17 08/26/23 01:31 BP 117/83 08/26/23 01:31 Pulse Ox 98 08/26/23 01:31 O2 Del Method Room Air 08/26/23 01:31 BMI result Body Mass Index 27.6 Appearance: Alert. Oriented X3. No acute distress. Anxious Eyes: PERRLA, No Nystagmus ENT: Pharynx normal. Oral Mucosa moist Neck: Normal inspection. Neck supple. CVS: Normal heart rate and rhythm. Pulses normal. Respiratory: No respiratory distress. Equal air entry bilateral, Abdomen: Soft and nontender. Bowel sounds are present, Skin: Skin warm and dry. Normal skin color. Normal skin turgor. Neuro: Oriented X 3. Medical Decision Making Medical Decision Making [facility] Narrative: Patient anxiety/panic attacks stable clinically this time patient does have therapist and Psychiatry will follow him in the a.m. as outpatient Lab Data [facility] Lab Attestation statement: I reviewed the patient's lab results. 08/25/23 22:43 08/25/23 22:43 Labs: Lab Results 08/25/23 08/26/23 Range/Units 22:43 00:25 WBC 11.0 H (4.8-10.8) X10*3/uL RBC 4.87 (4.20-5.50) X10*6/uL Hgb 14.7 (12.0-16.0) g/dl Hct 43.1 (37.0-47.0) % MCV 88.5 (80.0-98.0) fL MCH 30.2 (27.0-33.0) pg MCHC 34.1 (31.0-35.0) g/dl RDW 13.0 (11.0-16.0) % Plt Count 431 H (160-400) X10*3/uL MPV 9.1 L (9.4-12.3) fL Immature Gran % (Auto) 0.3 (0.0-0.4) % Neut % (Auto) 56.0 (45-73) % Lymph % (Auto) 35.5 (20-40) % [place] % (Auto) 6.5 (2-11) % Eos % (Auto) 1.2 (0-4) % Baso % (Auto) 0.5 (0-2) % Lymph # (Auto) 3.9 (1.2-4.9) X10*3/uL [place] # (Auto) 0.7 (0.1-1.2) X10*3/uL Eos # (Auto) 0.1 (0.0-0.4) X10*3/uL Baso # (Auto) 0.1 (0.0-0.2) X10*3/uL Abs Immat Gran (auto) 0.03 (0.00-0.03) X10*3/uL Absolute Neuts (auto) 6.2 (2.0-8.3) x10*3/uL Absolute Nucleated RBC 0.000 (0.0-0.012) X10*3/uL Nucleated RBC % (auto) 0.0 (0.0-0.2) /100WBC Sodium 142 (135-145) mmol/L Potassium 4.3 (3.3-5.1) mmol/L Chloride 105 (96-108) mmol/L Carbon Dioxide 28 (22-29) mmol/L Anion Gap 13 (12-20) BUN 18 H (9-16) mg/dL Creatinine 0.81 (0.5-1.4) mg/dL Estim Creat Clear Calc 80.6 Estimated GFR > 60 Random Glucose 85 (60-115) mg/dL Calcium 9.8 (8.4-10.2) mg/dL Total Bilirubin 0.3 (0.0-1.0) mg/dL AST 16 (5-31) U/L ALT 13 (0-31) U/L Alkaline Phosphatase 82 (39-117) U/L Total Protein 8.1 H (6.5-8.0) g/dL Albumin 4.9 (3.5-5.0) g/dL Urine Opiates Screen Not Detected (Not Detect) Urine Fentanyl Screen Not Detected (Not Detect) Ur Barbiturates Screen Not Detected (Not Detect) Ur Phencyclidine Scrn Not Detected (Not Detect) Ur Amphetamines Screen POSITIVE H (Not Detect) U Benzodiazepines Scrn Not Detected (Not Detect) Urine Cocaine Screen Not Detected (Not Detect) U Marijuana (THC) Screen POSITIVE H (Not Detect) Ethyl Alcohol < 10 mg/dL COVID-19 ([facility]) Negative (Negative) COVID-19 Clin Com See Note Discharge Plan Discharge Clinical Impression: Acute anxiety Patient Disposition: Home, Self-Care Instructions: Anxiety (ED) Additional Instructions: Continue medications and follow up with the therapist and psychiatric You may take extra Ativan tonight to relaxants sleep Prescriptions: No Action omeprazole 40 mg capsule,delayed release(DR/EC) 40 mg PO DAILY Qty: 30 0RF hydrocortisone acetate [Anusol-HC] 25 mg suppository 25 mg [place] BID 5 Days Qty: 12 0RF polyethylene glycol 3350 [Miralax] 17 gram/dose powder 17 g PO DAILY Qty: 238 0RF amoxicillin 500 mg capsule 1,000 mg PO Q12H Qty: 56 0RF pantoprazole [Protonix] 40 mg tablet,delayed release (DR/EC) 40 mg PO DAILY Qty: 30 0RF clarithromycin 500 mg tablet 500 mg PO BID Qty: 28 0RF ondansetron 4 mg tablet,disintegrating 4 mg PO Q6-8H PRN (Reason: nausea and vomiting) Qty: 10 0RF ondansetron 4 mg tablet,disintegrating 4 mg PO Q6-8H PRN (Reason: nausea and vomiting) Qty: 14 0RF ciprofloxacin HCl 250 mg tablet 250 mg PO BID Qty: 14 0RF prochlorperazine maleate [Compazine] 10 mg tablet 10 mg PO BID PRN (Reason: nausea and vomiting) Qty: 14 0RF aripiprazole 5 mg tablet 5 mg PO DAILY diphenhydramine HCl [Benadryl] 25 mg capsule 25 mg PO TID PRN fluticasone furoate-vilanterol [Breo Ellipta] 200-25 mcg/dose blister with device 1 inh inhalation DAILY bupropion HCl 150 mg tablet extended release 24 hr 150 mg PO QAM escitalopram oxalate 20 mg tablet 20 mg PO DAILY ferrous sulfate 325 mg (65 mg iron) tablet 325 mg PO DAILY 5-hydroxytryptophan (5-HTP) 50 mg capsule 25 mg PO BID lamotrigine 100 mg tablet 100 mg PO DAILY lorazepam 0.5 mg tablet 0.5 mg PO DAILY PRN albuterol 90 mcg/actuation aerosol inhalation sennosides-docusate sodium [Senna with Docusate Sodium] 8.6-50 mg tablet 1 tab-cap PO BEDTIME Vyvanse 20 mg capsule 20 mg PO DAILY Stand Alone Forms: Work/School Release Interventions: ED Discharge Assessment Last Done: 08/26/23 01:40 Discharge Date/Time: 08/26/23 01:41
[2023-08-26 01:31] VITALS: BP 117/83; PULSE 80; RESP 17; O2SAT 98
== END 2023-08-26 01:41 | disposition home or self-care (01) ==
PROVIDERS: Emergency Provider Internal Medicine
DX: F41.9 Anxiety disorder, unspecified (principal); F32.A Depression, unspecified; F17.200 Nicotine dependence, unspecified, uncomplicated; Z79.899 Other long term (current) drug therapy; Z11.52 Encounter for screening for COVID-19
CPT/HCPCS: 80053; 80307; 85025; 87635; 93005; 99283; 99284

== ENCOUNTER → 2023-08-25 | Outpatient (BNV) | payer OTHER, SELFPAY | PROVIDERS: Emergency Provider Internal Medicine; Visit Provider Internal Medicine | DX: F41.9 Anxiety disorder, unspecified (principal) | CPT/HCPCS: 93010 ==